=== PATIENT | male | born 1985 | race Caucasian/White ===

== ENCOUNTER 2018-05-26 19:30 | Emergency (ER) | payer OTHER ==
[2018-05-26] MEDS ORDERED: diphenhydrAMINE 50 MG/ML 1 ML VIAL IM STA (20:11)
[2018-05-26] MEDS ORDERED: LORazepam 2 MG/ML INJ IM STA ×2 (20:12→20:33)
[2018-05-26] MEDS ORDERED: ZIPRASIDONE 20 MG VIAL IM STA (20:20)
[2018-05-26 21:00] LABS: Basophils # (A) 0.1 k/uL (0-0.2); Basophils % (A) 1 %; Eosinophils # (A) 0.2 k/uL (0-0.7); Eosinophils % (A) 2 %; HCT 48.4 % (39.0-53.0); HGB 15.9 gm/dL (13.0-17.5); Lymphocytes # (A) 3.5 k/uL (1.0-4.8); Lymphocytes % (A) 39 %; MCH 30.2 pg (25.0-35.0); MCHC 32.9 g/dL (31.0-37.0); MCV 91.8 fL (80.0-100.0); Mean Platelet Volume 6.4; Monocytes # (A) 0.5 k/uL (0-1.0); Monocytes % (A) 6 %; Neutrophils # (A) 4.4 k/uL (1.3-7.7); Neutrophils % (A) 50 %; Platelet Count 230 k/uL (150-450); RBC 5.27 m/uL (4.30-5.90); WBC 8.9 k/uL (3.8-10.6)
[2018-05-26 21:13] LABS: ALT 33 U/L (21-72); AST 37 U/L (17-59); Alcohol <10 mg/dL; Alkaline Phosphatase 68 U/L (38-126); Anion Gap 19 mmol/L; Blood Urea Nitrogen 14 mg/dL (9-20); Carbon Dioxide 15 mmol/L (22-30); Chloride 106 mmol/L (98-107); Glucose 121 mg/dL (74-99); Potassium 4.1 mmol/L (3.5-5.1); Sodium 140 mmol/L (137-145); Total Bilirubin 0.7 mg/dL (0.2-1.3); Total Protein 8.2 g/dL (6.3-8.2)
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
[2018-05-27] MEDS ORDERED: ACETAMINOPHEN TAB 500 MG TAB PO STA (04:51)
[2018-05-27] MEDS ORDERED: IBUPROFEN 400 MG TAB PO STA (05:11)
[2018-05-27 05:24] LABS: Appearance,Urine Clear (Clear); Bilirubin,Urine Negative (Negative); Blood,Urine Negative (Negative); Color,Urine Yellow; Glucose,Urine (UA) Negative (Negative); Ketones,Urine Negative (Negative); Leukocyte Esterase,Urine Negative (Negative); Nitrite,Urine Negative (Negative); PH, Urine 5.5 (5.0-8.0); Protein,Urine Trace (Negative); Urobilinogen,Urine <2.0 mg/dL (<2.0)
[2018-05-27 05:34] LABS: Amphetamine Screen,Urine Not Detected (NotDetected); Barbiturate Screen,Urine Not Detected (NotDetected); Benzodiazepines Screen,Urine Detected (NotDetected); Cocaine Screen,Urine Not Detected (NotDetected); Methadone Screen, Urine Not Detected (NotDetected); Opiate Screen,Urine Not Detected (NotDetected); Oxycodone Screen, Urine Not Detected (NotDetected); Phencyclidine Screen,Urine Not Detected (NotDetected); Tricyclic Antidepressant,Urine Not Detected (NotDetected); Urn Cannabinoid Scrn Detected (NotDetected)
[2018-05-27] MEDS ORDERED: NICOTINE 21MG/24HR PATCH TRANSDERM STA (08:14)
[2018-05-27 10:14] VITALS: RESP 18
[2018-05-27 14:05] LABS: ALT 40 U/L (21-72); AST 43 U/L (17-59); Albumin 4.4 g/dL (3.5-5.0); Alkaline Phosphatase 58 U/L (38-126); Anion Gap 6 mmol/L; Blood Urea Nitrogen 14 mg/dL (9-20); Calcium 9.6 mg/dL (8.4-10.2); Carbon Dioxide 27 mmol/L (22-30); Chloride 108 mmol/L (98-107); Glucose 98 mg/dL (74-99); Potassium 4.2 mmol/L (3.5-5.1); Sodium 141 mmol/L (137-145); Total Protein 7.2 g/dL (6.3-8.2)
[2018-05-27 15:35] VITALS: BP 142/99; PULSE 88; TEMP 98.6
== END 2018-05-27 15:35 | disposition other institution (70) ==
LOC: EC 19:30
DX: F23 Brief psychotic disorder (principal); F22 Delusional disorders; F17.210 Nicotine dependence, cigarettes, uncomplicated; Z78.1 Physical restraint status; Z53.8 Procedure and treatment not carried out for other reasons
CPT/HCPCS: 36415 ×2; 80053 ×2; 85025; 81003; 80306; 99285; 96372 ×3; G0480; S4990; J2060; J3486; 80320

== ENCOUNTER 2018-06-09 13:25 | Emergency (ER) | payer OTHER ==
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
[2018-06-09] MEDS ORDERED: ZIPRASIDONE 20 MG VIAL IM STA (21:12)
[2018-06-09] MEDS ORDERED: LORazepam 2 MG/ML INJ IM STA (21:12)
[2018-06-09 21:17] VITALS: TEMP 98
[2018-06-10 03:33] LABS: Appearance,Urine Clear (Clear); Basophils # (A) 0.1 k/uL (0-0.2); Basophils % (A) 1 %; Bilirubin,Urine Negative (Negative); Blood,Urine Negative (Negative); Color,Urine Yellow; Eosinophils # (A) 0.4 k/uL (0-0.7); Eosinophils % (A) 4 %; Glucose,Urine (UA) Negative (Negative); HCT 44.7 % (39.0-53.0); HGB 15.3 gm/dL (13.0-17.5); Ketones,Urine Negative (Negative); Leukocyte Esterase,Urine Negative (Negative); Lymphocytes # (A) 3.1 k/uL (1.0-4.8); Lymphocytes % (A) 30 %; MCH 31.2 pg (25.0-35.0); MCHC 34.2 g/dL (31.0-37.0); MCV 91.3 fL (80.0-100.0); Mean Platelet Volume 6.4; Monocytes # (A) 0.7 k/uL (0-1.0); Monocytes % (A) 6 %; Neutrophils # (A) 6.2 k/uL (1.3-7.7); Neutrophils % (A) 58 %; Nitrite,Urine Negative (Negative); PH, Urine 5.5 (5.0-8.0); Platelet Count 211 k/uL (150-450); Protein,Urine Trace (Negative); RDW 12.9 % (11.5-15.5); Specific Gravity,Urine 1.023 (1.001-1.035); Urobilinogen,Urine <2.0 mg/dL (<2.0); WBC 10.6 k/uL (3.8-10.6)
[2018-06-10 03:48] LABS: ALT 51 U/L (21-72); AST 35 U/L (17-59); Alkaline Phosphatase 64 U/L (38-126); Anion Gap 7 mmol/L; Blood Urea Nitrogen 19 mg/dL (9-20); Calcium 9.7 mg/dL (8.4-10.2); Carbon Dioxide 26 mmol/L (22-30); Chloride 106 mmol/L (98-107); Glucose 105 mg/dL (74-99); Potassium 4.4 mmol/L (3.5-5.1); Sodium 139 mmol/L (137-145); Total Bilirubin 0.9 mg/dL (0.2-1.3)
[2018-06-10 06:06] LABS: Amphetamine Screen,Urine Not Detected (NotDetected); Barbiturate Screen,Urine Not Detected (NotDetected); Benzodiazepines Screen,Urine Detected (NotDetected); Cocaine Screen,Urine Not Detected (NotDetected); Methadone Screen, Urine Not Detected (NotDetected); Opiate Screen,Urine Not Detected (NotDetected); Oxycodone Screen, Urine Not Detected (NotDetected); Phencyclidine Screen,Urine Not Detected (NotDetected); Tricyclic Antidepressant,Urine Not Detected (NotDetected); Urn Cannabinoid Scrn Not Detected (NotDetected)
[2018-06-10 08:32] VITALS: BP 145/74; PULSE 89; RESP 16
[2018-06-10] MEDS ORDERED: DIVALPROEX ER 500 MG TAB.ER.24H PO STA (08:37)
[2018-06-10] MEDS ORDERED: NICOTINE 21MG/24HR PATCH TRANSDERM STA (11:01)
[2018-06-10] MEDS ORDERED: DIVALPROEX ER 500 MG TAB.ER.24H PO ONE (21:00)
== END 2018-06-10 11:18 ==
LOC: EC 13:25
DX: F31.9 Bipolar disorder, unspecified (principal); F17.200 Nicotine dependence, unspecified, uncomplicated; Z78.1 Physical restraint status; Z79.899 Other long term (current) drug therapy
CPT/HCPCS: 36415; 80053; 85025; 81003; 80306; 99285; 96372 ×2; S4990; J2060; J3486

== ENCOUNTER 2018-07-03 10:48 | Inpatient (IN) | payer MEDICAID, OTHER ==
[2018-07-03 11:32] LABS: Amphetamine Screen,Urine Not Detected (NotDetected); Barbiturate Screen,Urine Not Detected (NotDetected); Benzodiazepines Screen,Urine Not Detected (NotDetected); Cocaine Screen,Urine Not Detected (NotDetected); Methadone Screen, Urine Not Detected (NotDetected); Opiate Screen,Urine Not Detected (NotDetected); Oxycodone Screen, Urine Not Detected (NotDetected); Phencyclidine Screen,Urine Not Detected (NotDetected); Tricyclic Antidepressant,Urine Not Detected (NotDetected); Urn Cannabinoid Scrn Not Detected (NotDetected)
--- NOTE | 2018-07-03 11:53 | ED ---
General Adult HPI - General Source: patient, RN notes reviewed, old records reviewed Mode of arrival: ambulatory Limitations: no limitations <Rip Flores - Last Filed: 07/03/18 11:52> <Ata Manzo - Last Filed: 07/04/18 15:01> - General Chief complaint: Psychiatric Symptoms Stated complaint: petition Time Seen by Provider: 07/03/18 11:06 - History of Present Illness Initial comments: 33-year-old male presents for psychiatric evaluation. Patient was petitioned for aggressive behavior and anger issues. Patient denies any suicidal or homicidal ideation. He is called at the time my evaluation. He states he recently moved to [facility] where he has been receiving outpatient psychiatric care. He had a 18 bradycardia inpatient psychiatric stay and has been compliant with his medications since discharge. He has no physical complaints. (Rip Flores) - Related Data Home Medications Medication Instructions Recorded Confirmed Cyclobenzaprine [Flexeril] 10 mg PO Q8H PRN 05/27/18 07/03/18 Ibuprofen [Motrin] 800 mg PO Q8H PRN 05/27/18 07/03/18 Divalproex ER [Depakote ER] 1,000 mg PO HS 06/09/18 07/03/18 Brexpiprazole [Rexulti] 1 mg PO HS 07/03/18 07/03/18 Divalproex ER [Depakote ER] 500 mg PO DAILY 07/03/18 07/03/18 Allergies Allergy/AdvReac Type Severity Reaction Status Date / Time No Known Allergies Allergy Verified 07/03/18 11:12 Review of Systems ROS Other: All systems not noted in ROS Statement are negative. <Rip Flores - Last Filed: 07/03/18 11:52> ROS Other: All systems not noted in ROS Statement are negative. <Ata Manzo - Last Filed: 07/04/18 15:01> ROS Statement: Those systems with pertinent positive or pertinent negative responses have been documented in the HPI. Past Medical History Past Medical History: No Reported History History of Any Multi-Drug Resistant Organisms: None Reported Past Surgical History: No Surgical Hx Reported Past Psychological History: No Psychological Hx Reported Smoking Status: Current every day smoker Past Alcohol Use History: Occasional Past Drug Use History: None Reported <Rip Flores Thierno - Last Filed: 07/03/18 11:52> General Exam Limitations: no limitations General appearance: alert, in no apparent distress Head exam: Present: atraumatic, normocephalic Eye exam: Present: normal appearance, PERRL ENT exam: Present: normal exam Neck exam: Present: normal inspection Respiratory exam: Present: normal lung sounds bilaterally. Absent: respiratory distress, wheezes Cardiovascular Exam: Present: regular rate, normal rhythm GI/Abdominal exam: Present: soft. Absent: distended, tenderness Extremities exam: Present: normal inspection, normal capillary refill. Absent: pedal edema Neurological exam: Present: alert, oriented X3, CN II-XII intact. Absent: motor sensory deficit Psychiatric exam: Present: normal affect, normal mood. Absent: agitated, homicidal ideation, suicidal ideation <Rip Flores N - Last Filed: 07/03/18 11:52> Course Vital Signs 07/03/18 07/03/18 07/04/18 10:57 19:34 06:52 Temperature 98.0 F 97.9 F 97.9 F Pulse Rate 103 H 87 94 Respiratory 18 18 18 Rate Blood Pressure 133/74 133/74 132/77 O2 Sat by Pulse 97 98 98 Oximetry Medical Decision Making - Lab Data Result diagrams: 07/04/18 13:00 07/04/18 13:00 <Ata Manzo - Last Filed: 07/04/18 15:01> - Medical Decision Making EPS admitted the patient as an inpatient at this facility. (Ata Manzo) - Lab Data Lab Results 07/03/18 07/03/18 07/04/18 Range/Units 11:00 12:59 13:00 WBC 6.7 (3.8-10.6) k/uL RBC 5.35 (4.30-5.90) m/uL Hgb 15.6 (13.0-17.5) gm/dL Hct 48.6 (39.0-53.0) % MCV 90.9 (80.0-100.0) fL MCH 29.2 (25.0-35.0) pg MCHC 32.1 (31.0-37.0) g/dL RDW 12.9 (11.5-15.5) % Plt Count 296 (150-450) k/uL Neutrophils % 44 % Lymphocytes % 45 % Monocytes % 5 % Eosinophils % 2 % Basophils % 1 % Neutrophils # 3.0 (1.3-7.7) k/uL Lymphocytes # 3.0 (1.0-4.8) k/uL Monocytes # 0.4 (0-1.0) k/uL Eosinophils # 0.1 (0-0.7) k/uL Basophils # 0.1 (0-0.2) k/uL Sodium (137-145) mmol/L Potassium (3.5-5.1) mmol/L Chloride (98-107) mmol/L Carbon Dioxide (22-30) mmol/L Anion Gap mmol/L BUN (9-20) mg/dL Creatinine (0.66-1.25) mg/dL Est GFR (CKD-EPI)AfAm (>60 ml/min/1.73 sqM) Est GFR (CKD-EPI)NonAf (>60 ml/min/1.73 sqM) Glucose (74-99) mg/dL Calcium (8.4-10.2) mg/dL Total Bilirubin (0.2-1.3) mg/dL AST (17-59) U/L ALT (21-72) U/L Alkaline Phosphatase (38-126) U/L Total Protein (6.3-8.2) g/dL Albumin (3.5-5.0) g/dL Urine Color Urine Appearance (Clear) Urine pH (5.0-8.0) Ur Specific [place] (1.001-1.035) Urine Protein (Negative) Urine Glucose (UA) (Negative) Urine Ketones (Negative) Urine Blood (Negative) Urine Nitrite (Negative) Urine Bilirubin (Negative) Urine Urobilinogen (<2.0) mg/dL Ur Leukocyte Esterase (Negative) Urine Opiates Screen Not Detected (NotDetected) Ur Oxycodone Screen Not Detected (NotDetected) Urine Methadone Screen Not Detected (NotDetected) Ur Propoxyphene Screen Not Detected (NotDetected) Ur Barbiturates Screen Not Detected (NotDetected) Valproic Acid 63.7 ug/mL U Tricyclic Antidepress Not Detected (NotDetected) Ur Phencyclidine Scrn Not Detected (NotDetected) Ur Amphetamines Screen Not Detected (NotDetected) U Methamphetamines Scrn Not Detected (NotDetected) U Benzodiazepines Scrn Not Detected (NotDetected) Urine Cocaine Screen Not Detected (NotDetected) U Marijuana (THC) Screen Not Detected (NotDetected) 07/04/18 07/04/18 Range/Units 13:00 13:00 WBC (3.8-10.6) k/uL RBC (4.30-5.90) m/uL Hgb (13.0-17.5) gm/dL Hct (39.0-53.0) % MCV (80.0-100.0) fL MCH (25.0-35.0) pg MCHC (31.0-37.0) g/dL RDW (11.5-15.5) % Plt Count (150-450) k/uL Neutrophils % % Lymphocytes % % Monocytes % % Eosinophils % % Basophils % % Neutrophils # (1.3-7.7) k/uL Lymphocytes # (1.0-4.8) k/uL Monocytes # (0-1.0) k/uL Eosinophils # (0-0.7) k/uL Basophils # (0-0.2) k/uL Sodium 142 (137-145) mmol/L Potassium 4.5 (3.5-5.1) mmol/L Chloride 103 (98-107) mmol/L Carbon Dioxide 29 (22-30) mmol/L Anion Gap 10 mmol/L BUN 16 (9-20) mg/dL Creatinine 0.81 (0.66-1.25) mg/dL Est GFR (CKD-EPI)AfAm >90 (>60 ml/min/1.73 sqM) Est GFR (CKD-EPI)NonAf >90 (>60 ml/min/1.73 sqM) Glucose 102 H (74-99) mg/dL Calcium 10.2 (8.4-10.2) mg/dL Total Bilirubin 0.8 (0.2-1.3) mg/dL AST 29 (17-59) U/L ALT 62 (21-72) U/L Alkaline Phosphatase 61 (38-126) U/L Total Protein 7.6 (6.3-8.2) g/dL Albumin 4.3 (3.5-5.0) g/dL Urine Color Light Yellow Urine Appearance Clear (Clear) Urine pH 7.0 (5.0-8.0) Ur Specific [place] 1.005 (1.001-1.035) Urine Protein Negative (Negative) Urine Glucose (UA) Negative (Negative) Urine Ketones Negative (Negative) Urine Blood Negative (Negative) Urine Nitrite Negative (Negative) Urine Bilirubin Negative (Negative) Urine Urobilinogen <2.0 (<2.0) mg/dL Ur Leukocyte Esterase Negative (Negative) Urine Opiates Screen (NotDetected) Ur Oxycodone Screen (NotDetected) Urine Methadone Screen (NotDetected) Ur Propoxyphene Screen (NotDetected) Ur Barbiturates Screen (NotDetected) Valproic Acid ug/mL U Tricyclic Antidepress (NotDetected) Ur Phencyclidine Scrn (NotDetected) Ur Amphetamines Screen (NotDetected) U Methamphetamines Scrn (NotDetected) U Benzodiazepines Scrn (NotDetected) Urine Cocaine Screen (NotDetected) U Marijuana (THC) Screen (NotDetected) Disposition <Rip Flores - Last Filed: 07/03/18 11:52> Time of Disposition: 15:01 <Ata Manzo - Last Filed: 07/04/18 15:01> Clinical Impression: Depression, Bipolar disorder Disposition: ADMITTED IP TO THIS HOSP Referrals: Jolly Camara MD [Primary Care Provider] - 1-2 days
[2018-07-03] MEDS ORDERED: NICOTINE 21MG/24HR PATCH TRANSDERM STA (14:19)
[2018-07-03] MEDS ORDERED: IBUPROFEN 800 MG TAB PO PRN (16:50)
[2018-07-03] MEDS ORDERED: DIVALPROEX ER 500 MG TAB.ER.24H PO ONE (18:00)
[2018-07-03] MEDS ORDERED: REXULTI 1 MG PO SCH (18:00)
[2018-07-03] MEDS ORDERED: LORazepam 1 MG TAB PO STA (20:16)
[2018-07-03] MEDS ORDERED: BREXPIPRAZOLE 1 MG PO SCH (21:00)
[2018-07-04] MEDS: CYCLOBENZAPRINE 10 MG TAB PO PRN ×3 (05:35→13:26)
[2018-07-04] MEDS: IBUPROFEN 400 MG TAB PO PRN ×2 (05:37→13:25)
[2018-07-04] MEDS ORDERED: NICOTINE 21MG/24HR PATCH TRANSDERM STA (07:25)
[2018-07-04] MEDS: DIVALPROEX ER 500 MG TAB.ER.24H PO SCH ×2 (07:47→17:24)
--- NOTE | 2018-07-04 07:54 | CDI ---
Documentation Clarification OP Dear Rip CEJA MD Please provide clinical impression. Thank you, Shannan Sims Aviation Operations Specialist If you have any questions, please contact [facility] at [phone] [facility]
[2018-07-04] MEDS ORDERED: LORazepam 1 MG TAB PO STA (11:19)
[2018-07-04 13:19] LABS: Basophils # (A) 0.1 k/uL (0-0.2); Basophils % (A) 1 %; Eosinophils # (A) 0.1 k/uL (0-0.7); Eosinophils % (A) 2 %; HCT 48.6 % (39.0-53.0); HGB 15.6 gm/dL (13.0-17.5); Lymphocytes % (A) 45 %; MCH 29.2 pg (25.0-35.0); MCHC 32.1 g/dL (31.0-37.0); MCV 90.9 fL (80.0-100.0); Mean Platelet Volume 6.3; Monocytes # (A) 0.4 k/uL (0-1.0); Monocytes % (A) 5 %; Neutrophils % (A) 44 %; Platelet Count 296 k/uL (150-450); RBC 5.35 m/uL (4.30-5.90); RDW 12.9 % (11.5-15.5); WBC 6.7 k/uL (3.8-10.6)
[2018-07-04 13:21] LABS: ALT 62 U/L (21-72); AST 29 U/L (17-59); Albumin 4.3 g/dL (3.5-5.0); Alkaline Phosphatase 61 U/L (38-126); Anion Gap 10 mmol/L; Blood Urea Nitrogen 16 mg/dL (9-20); Calcium 10.2 mg/dL (8.4-10.2); Carbon Dioxide 29 mmol/L (22-30); Chloride 103 mmol/L (98-107); Glucose 102 mg/dL (74-99); Potassium 4.5 mmol/L (3.5-5.1); Sodium 142 mmol/L (137-145); Total Bilirubin 0.8 mg/dL (0.2-1.3); Total Protein 7.6 g/dL (6.3-8.2)
[2018-07-04 13:27] LABS: Appearance,Urine Clear (Clear); Bilirubin,Urine Negative (Negative); Blood,Urine Negative (Negative); Color,Urine Light Yellow; Glucose,Urine (UA) Negative (Negative); Ketones,Urine Negative (Negative); Leukocyte Esterase,Urine Negative (Negative); Nitrite,Urine Negative (Negative); Protein,Urine Negative (Negative); Specific Gravity,Urine 1.005 (1.001-1.035); Urobilinogen,Urine <2.0 mg/dL (<2.0)
[2018-07-04] MEDS ORDERED: MAGNESIUM HYDROXIDE 2,400 MG/10 ML CUP PO PRN (15:39)
[2018-07-04] MEDS ORDERED: ZIPRASIDONE 20 MG VIAL IM PRN (15:39)
[2018-07-04] MEDS ORDERED: MAG HYDROX/AL HYDROX/SIMETH 30 ML CUP PO PRN (15:39)
[2018-07-04] MEDS ORDERED: LORazepam 1 MG TAB PO PRN (15:39)
--- NOTE | 2018-07-04 17:14 | P.MDCNMH ---
History of Present Illness H&P Date: 07/04/18 Chief Complaint: Medical management 33-year-old male with PMH of bipolar disorder presents to the ED being brought in for police for aggressive behavior. [facility] has been consulted for medical management of this patient. Patient reports no past medical history. Patient does complain of chronic lower back pain. This pain started after he fell off stilts, onto his back. He was evaluated in the ED and cleared for any fracture. This happened back in April. Since then patient reports a 10 out of 10 chronic lower back pain, that is usually worsened first thing in the morning. The pain gets better throughout the day and with movement. Pain occasionally radiates to the bilateral lower extremities towards the knees. There are no alleviating or aggravating factors. Patient takes a combination of Flexeril, ibuprofen and Tylenol which helps his back pain. He denies any bladder or bowel incontinence, saddle anesthesia. Otherwise, patient denies any headaches, lower extremity edema, nausea, vomiting, fever, cough, chest pain, shortness of breath, palpitations, changes in urination or bowel habits. No changes in appetite or weight. Of note, patient reports smoking 2 packs of cigarettes daily for the past 4 years. He does complain of insomnia, which is helped with Ativan. Review of Systems All systems: negative Past Medical History Past Medical History: No Reported History History of Any Multi-Drug Resistant Organisms: None Reported Past Surgical History: No Surgical Hx Reported Past Psychological History: No Psychological Hx Reported Smoking Status: Current every day smoker Past Alcohol Use History: Occasional Past Drug Use History: None Reported Medications and Allergies Home Medications Medication Instructions Recorded Confirmed Type Cyclobenzaprine [Flexeril] 10 mg PO Q8H PRN 05/27/18 07/03/18 History Ibuprofen [Motrin] 800 mg PO Q8H PRN 05/27/18 07/03/18 History Divalproex ER [Depakote ER] 1,000 mg PO HS 06/09/18 07/03/18 History Brexpiprazole [Rexulti] 1 mg PO HS 07/03/18 07/03/18 History Divalproex ER [Depakote ER] 500 mg PO DAILY 07/03/18 07/03/18 History Allergies Allergy/AdvReac Type Severity Reaction Status Date / Time No Known Allergies Allergy Verified 07/03/18 11:12 Physical Exam Vitals: Vital Signs Temp Pulse Pulse Resp BP BP Pulse Ox 07/04/18 15:52 97.3 F L 89 16 133/84 98 07/04/18 06:52 97.9 F 94 18 132/77 98 07/03/18 19:34 97.9 F 87 18 133/74 98 General: [non toxic], [no distress], [appears at stated age] Derm: [warm], [dry] Head: [atraumatic], [normocephalic], [symmetric] Eyes: [EOMI], [no lid lag], [anicteric sclera] Mouth: [no lip lesion], [mucus membranes moist] Cardiovascular: [S1S2 reg], [no murmur], [positive posterior tibial pulse bilateral], Lungs: [CTA bilateral], [no rhonchi, no rales] , [no accessory muscle use] Abdominal: [soft], [ nontender to palpation], [no guarding], [no appreciable organomegaly] Ext: [no gross muscle atrophy], [no edema], [tenderness over the paraspinal muscles bilaterally, SLR negative] Neuro: [ CN II-XI grossly intact], [no focal neuro deficits] Psych: [Alert], [oriented], [appropriate affect] Cranial Nerve Examination - Cranial Nerves Cranial Nerve II- Optic: Intact Cranial Nerve III- Oculomotor: Intact Cranial Nerve IV- Trochlear: Intact Cranial Nerve V- Trigeminal: Intact Cranial Nerve - Abducens: Intact Cranial Nerve VII- Facial: Intact Cranial Nerve VIII- Auditory: Intact Cranial Nerve IX- Glossopharyngeal: Intact Cranial Nerve X- Vagus: Intact Cranial Nerve XI- Accessory: Intact Cranial Nerve XII- Hypoglossal: Intact Results CBC & Chem 7: 07/04/18 13:00 07/04/18 13:00 Labs: Abnormal Lab Results - Last 24 Hours (Table) 07/04/18 Range/Units 13:00 Glucose 102 H (74-99) mg/dL Assessment and Plan Assessment: Assessment and Plan 1. Chronic lower back pain 2. Insomnia 3. Smoker 1. Chronic lower back pain secondary to injury suffered in April. He does not have any warning symptoms of back pain. Pain management with Tylenol, ibuprofen. Will add Flexeril as needed. Follow-up PCP for further management and treatment. 2. Start Ativan 2 mg by mouth at bedtime. Patient has reported that this is worked well in the past. 3. Nicotine patch. Thank you for this consult. Please call with additional questions.
[2018-07-04] MEDS: LORazepam 1 MG TAB PO PRN (20:56)
[2018-07-04] MEDS ORDERED: PALIPERIDONE 3 MG TAB.ER.24 PO SCH (21:00)
[2018-07-05] MEDS: DIVALPROEX ER 500 MG TAB.ER.24H PO SCH ×2 (08:00→17:39)
[2018-07-05] MEDS: NICOTINE 21MG/24HR PATCH TRANSDERM SCH (08:00)
[2018-07-05] MEDS: IBUPROFEN 400 MG TAB PO PRN ×2 (08:01→21:06)
--- NOTE | 2018-07-05 11:25 | P.HP ---
Psychiatric H&P - . H&P Date: 07/05/18 History & Physical: Allergies Allergy/AdvReac Type Severity Reaction Status Date / Time No Known Allergies Allergy Verified 07/03/18 11:12 Vital Signs Temp 97.9 F 07/04/18 06:52 Pulse 94 07/04/18 06:52 Resp 18 07/04/18 06:52 BP 132/77 07/04/18 06:52 Pulse Ox 98 07/04/18 06:52 Intake & Output 07/03/18 07/04/18 07/04/18 18:59 06:59 18:59 Weight 108.862 kg Laboratory Last Values WBC 6.7 k/uL (3.8-10.6) 07/04/18 13:00 RBC 5.35 m/uL (4.30-5.90) 07/04/18 13:00 Hgb 15.6 gm/dL (13.0-17.5) 07/04/18 13:00 Hct 48.6 % (39.0-53.0) 07/04/18 13:00 MCV 90.9 fL (80.0-100.0) 07/04/18 13:00 MCH 29.2 pg (25.0-35.0) 07/04/18 13:00 MCHC 32.1 g/dL (31.0-37.0) 07/04/18 13:00 RDW 12.9 % (11.5-15.5) 07/04/18 13:00 Plt Count 296 k/uL (150-450) 07/04/18 13:00 Neutrophils % 44 % 07/04/18 13:00 Lymphocytes % 45 % 07/04/18 13:00 Monocytes % 5 % 07/04/18 13:00 Eosinophils % 2 % 07/04/18 13:00 Basophils % 1 % 07/04/18 13:00 Neutrophils # 3.0 k/uL (1.3-7.7) 07/04/18 13:00 Lymphocytes # 3.0 k/uL (1.0-4.8) 07/04/18 13:00 Monocytes # 0.4 k/uL (0-1.0) 07/04/18 13:00 Eosinophils # 0.1 k/uL (0-0.7) 07/04/18 13:00 Basophils # 0.1 k/uL (0-0.2) 07/04/18 13:00 Sodium 142 mmol/L (137-145) 07/04/18 13:00 Potassium 4.5 mmol/L (3.5-5.1) 07/04/18 13:00 Chloride 103 mmol/L (98-107) 07/04/18 13:00 Carbon Dioxide 29 mmol/L (22-30) 07/04/18 13:00 Anion Gap 10 mmol/L 07/04/18 13:00 BUN 16 mg/dL (9-20) 07/04/18 13:00 Creatinine 0.81 mg/dL (0.66-1.25) 07/04/18 13:00 Est GFR (CKD-EPI)AfAm >90 (>60 ml/min/1.73 sqM) 07/04/18 13:00 Est GFR (CKD-EPI)NonAf >90 (>60 ml/min/1.73 sqM) 07/04/18 13:00 Glucose 102 mg/dL (74-99) H 07/04/18 13:00 Calcium 10.2 mg/dL (8.4-10.2) 07/04/18 13:00 Total Bilirubin 0.8 mg/dL (0.2-1.3) 07/04/18 13:00 AST 29 U/L (17-59) 07/04/18 13:00 ALT 62 U/L (21-72) 07/04/18 13:00 Alkaline Phosphatase 61 U/L (38-126) 07/04/18 13:00 Total Protein 7.6 g/dL (6.3-8.2) 07/04/18 13:00 Albumin 4.3 g/dL (3.5-5.0) 07/04/18 13:00 Urine Color Light Yellow 07/04/18 13:00 Urine Appearance Clear (Clear) 07/04/18 13:00 Urine pH 7.0 (5.0-8.0) 07/04/18 13:00 Ur Specific [place] 1.005 (1.001-1.035) 07/04/18 13:00 Urine Protein Negative (Negative) 07/04/18 13:00 Urine Glucose (UA) Negative (Negative) 07/04/18 13:00 Urine Ketones Negative (Negative) 07/04/18 13:00 Urine Blood Negative (Negative) 07/04/18 13:00 Urine Nitrite Negative (Negative) 07/04/18 13:00 Urine Bilirubin Negative (Negative) 07/04/18 13:00 Urine Urobilinogen <2.0 mg/dL (<2.0) 07/04/18 13:00 Ur Leukocyte Esterase Negative (Negative) 07/04/18 13:00 Urine Opiates Screen Not Detected (NotDetected) 07/03/18 11:00 Ur Oxycodone Screen Not Detected (NotDetected) 07/03/18 11:00 Urine Methadone Screen Not Detected (NotDetected) 07/03/18 11:00 Ur Propoxyphene Screen Not Detected (NotDetected) 07/03/18 11:00 Ur Barbiturates Screen Not Detected (NotDetected) 07/03/18 11:00 Valproic Acid 63.7 ug/mL 07/03/18 12:59 U Tricyclic Antidepress Not Detected (NotDetected) 07/03/18 11:00 Ur Phencyclidine Scrn Not Detected (NotDetected) 07/03/18 11:00 Ur Amphetamines Screen Not Detected (NotDetected) 07/03/18 11:00 U Methamphetamines Scrn Not Detected (NotDetected) 07/03/18 11:00 U Benzodiazepines Scrn Not Detected (NotDetected) 07/03/18 11:00 Urine Cocaine Screen Not Detected (NotDetected) 07/03/18 11:00 U Marijuana (THC) Screen Not Detected (NotDetected) 07/03/18 11:00 Assessment and Plan Assessment: This is a 33-year-old male presents for psychiatric evaluation. Patient was petitioned for aggressive behavior and anger issues. Patient denies any suicidal or homicidal ideation. He is calm at the time my evaluation. He states he recently moved to [facility] where he has been receiving outpatient psychiatric care. He had a inpatient psychiatric stay and has been compliant with his medications since discharge. He has no physical complaints. This is his fifth hospitalization for psychiatric purposes. His last hospitalization was at [facility] in [facility] and was cared for by Dr. Trinidad. 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 - Related Data Home Medications Medication Instructions Recorded Confirmed Cyclobenzaprine [Flexeril] 10 mg PO Q8H PRN 05/27/18 07/03/18 Ibuprofen [Motrin] 800 mg PO Q8H PRN 05/27/18 07/03/18 Divalproex ER [Depakote ER] 1,000 mg PO HS 06/09/18 07/03/18 Brexpiprazole [Rexulti] 1 mg PO HS 07/03/18 07/03/18 Divalproex ER [Depakote ER] 500 mg PO DAILY 07/03/18 07/03/18 Allergies Allergy/AdvReac Type Severity Reaction Status Date / Time No Known Allergies Allergy Verified 07/03/18 11:12 Past Medical History Past Medical History: No Reported History History of Any Multi-Drug Resistant Organisms: None Reported Past Surgical History: No Surgical Hx Reported Past Psychological History: No Psychological Hx Reported Smoking Status: Current every day smoker Past Alcohol Use History: Occasional Past Drug Use History: None Reported Musculoskeletal Examination - Abnormal/Involuntary Movements: [none Strength: [greater than antigravity (greater than/equal to 3/5) in all extremities Muscle Tone: [no impairment Gait: [grossly normal Station: [grossly normal Mental Status Examination - General Appearance: [well groomed, casual, appears stated age Speech/Language: [spontaneousexpressive, loud Attitude/Behavior: [cooperative Mood: [ euphoric, anxious Affect: [full range Orientation: [time, person, place situation] Thought Content: [wnl, delusions, obsessions, phobias, other] Risk Factors: [Denies suicidal (ideations, plan), and/or Homicidal (ideations, plan), other] Perception: [wnl, denies hallucinations (auditory, visual, tactile), other] Thought Processes: [He is goal-oriented Concentration/Attention Span: [wnl] [Per observation and interview with the patient] Recent Memory: [wnl Remote Memory: [wnl] [past events, as related history] Intelligence: [ average] [based on history, based on vocabulary, syntax, grammar, and content] Judgement: [good] [per patient's behavior/history of present illness] Insight: [good] [understanding severity of illness/history of present illness] Admitting Diagnosis: [Bipolar affective disorder noncompliant with treatment] Patient Strengths - P Able to vocalize needs: [x] Values and traditions: [] Motivation, determination, readiness for change: [x] Setting and pursuing goals, hopes, dreams, aspirations: [x] Patient Limitations: [medication, non-compliance, Initial Plan of Care: [Is admitted on an involuntary basis due to demand hearing since he deferred at last inpatient psychiatric facility to adhere to a psychiatric medical treatment program and he has not done. He will have a demand hearing with probate court regarding his nonadherence to medical treatment program. He'll be placed on 15 minute checks criminal usual forman and milieu therapy. He will be evaluated by medicine, psychiatry, nursing staff, social work and occupational therapy. He'll be expected to remain in compliance and adherence to his medications and a thorough biopsychosocial evaluation be completed. He'll be continued on his Depakote but will discontinue his antidepressant and will add an antipsychotic for mood and thought stabilization.] Estimated Length of Stay: [5 days] Initial Discharge Plan: [[place] Prognosis: [ fair] Justification for Inpatient Hospitalization - [Legally mandated admission.] [ [Failure of treatment at a lower level of care.] Other: [Demand hearing due to not following up on his outpatient treatment.] (1) Bipolar disorder Current Visit: Yes Status: Acute Code(s): F31.9 - BIPOLAR DISORDER, UNSPECIFIED SNOMED Code(s): 66732691 Time with Patient: Greater than 30
[2018-07-05] MEDS: CYCLOBENZAPRINE 5 MG TAB PO PRN ×2 (13:22→21:29)
[2018-07-05] MEDS ORDERED: PALIPERIDONE 6 MG TAB.ER.24 PO SCH (21:00)
[2018-07-05] MEDS: LORazepam 1 MG TAB PO PRN (21:07)
[2018-07-06] MEDS: IBUPROFEN 400 MG TAB PO PRN ×3 (04:51→21:26)
[2018-07-06] MEDS: CYCLOBENZAPRINE 5 MG TAB PO PRN ×3 (04:51→21:25)
[2018-07-06] MEDS: NICOTINE 21MG/24HR PATCH TRANSDERM SCH (08:18)
[2018-07-06] MEDS: DIVALPROEX ER 500 MG TAB.ER.24H PO SCH ×2 (08:18→17:13)
--- NOTE | 2018-07-06 12:25 | P.PN ---
Subjective Progress Note Date: 07/06/18 Principal diagnosis: bipolar affective disorder-manic He more alert and able to communicate with less pressured speech. Objective - Vital Signs Vital signs: Vital Signs Temp 98 F 07/06/18 06:50 Pulse 102 H 07/06/18 06:50 Resp 18 07/06/18 06:50 BP 145/74 07/06/18 06:50 Pulse Ox 98 07/04/18 15:52 Intake & Output 07/05/18 07/06/18 07/06/18 18:59 06:59 18:59 Weight 109.781 kg - Labs CBC & Chem 7: 07/04/18 13:00 07/04/18 13:00 Assessment and Plan Assessment: This is a 33-year-old male presents for psychiatric evaluation. Patient was petitioned for aggressive behavior and anger issues. Patient denies any suicidal or homicidal ideation. He is calm at the time my evaluation. He s tates he recently moved to [facility] where he has been receiving outpatient psychiatric care. He had a inpatient psychiatric stay and has been compliant with his medications since discharge. He has no physical complaints. This is his fifth hospitalization for psychiatric purposes. His last hospitalization was at [facility] in [facility] and was cared for by Dr. Trinidad. 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 - Related Data Home Medications Medication Instructions Recorded Confirmed Cyclobenzaprine [Flexeril] 10 mg PO Q8H PRN 05/27/18 07/03/18 Ibuprofen [Motrin] 800 mg PO Q8H PRN 05/27/18 07/03/18 Divalproex ER [Depakote ER] 1,000 mg PO HS 06/09/18 07/03/18 Brexpiprazole [Rexulti] 1 mg PO HS 07/03/18 07/03/18 Divalproex ER [Depakote ER] 500 mg PO DAILY 07/03/18 07/03/18 Allergies Allergy/AdvReac Type Severity Reaction Status Date / Time No Known Allergies Allergy Verified 07/03/18 11:12 Past Medical History Past Medical History: No Reported History History of Any Multi-Drug Resistant Organisms: None Reported Past Surgical History: No Surgical Hx Reported Past Psychological History: No Psychological Hx Reported Smoking Status: Current every day smoker Past Alcohol Use History: Occasional Past Drug Use History: None Reported Musculoskeletal Examination - Abnormal/Involuntary Movements: [none Strength: [greater than antigravity (greater than/equal to 3/5) in all extremities Muscle Tone: [no impairment Gait: [grossly normal Station: [grossly normal Mental Status Examination - General Appearance: [well groomed, casual, appears stated age Speech/Language: [spontaneousexpressive, loud Attitude/Behavior: [cooperative Mood: [ euphoric, anxious Affect: [full range Orientation: [time, person, place situation] Thought Content: [wnl, delusions, obsessions, phobias, other] Risk Factors: [Denies suicidal (ideations, plan), and/or Homicidal (ideations, plan), other] Perception: [wnl, denies hallucinations (auditory, visual, tactile), other] Thought Processes: [He is goal-oriented Concentration/Attention Span: [wnl] [Per observation and interview with the patient] Recent Memory: [wnl Remote Memory: [wnl] [past events, as related history] Intelligence: [ average] [based on history, based on vocabulary, syntax, grammar, and content] Judgement: [good] [per patient's behavior/history of present illness] Insight: [good] [understanding severity of illness/history of present illness] Admitting Diagnosis: [Bipolar affective disorder noncompliant with treatment] Patient Strengths - P Able to vocalize needs: [x] Values and traditions: [] Motivation, determination, readiness for change: [x] Setting and pursuing goals, hopes, dreams, aspirations: [x] Patient Limitations: [medication, non-compliance, Initial Plan of Care: [Is admitted on an involuntary basis due to demand hearing since he deferred at last inpatient psychiatric facility to adhere to a psychiatric medical treatment program and he has not done. He will have a demand hearing with probate court regarding his nonadherence to medical treatment program. He'll be placed on 15 minute checks criminal usual forman and milieu therapy. He will be evaluated by medicine, psychiatry, nursing staff, social work and occupational therapy. He'll be expected to remain in compliance and adherence to his medications and a thorough biopsychosocial evaluation be completed. He'll be continued on his Depakote but will discontinue his antidepressant and will add an antipsychotic for mood and thought stabilization.] Estimated Length of Stay: [4 days] Initial Discharge Plan: [[place], [facility] Prognosis: [ fair] Justification for Inpatient Hospitalization - [Legally mandated admission.] [ [Failure of treatment at a lower level of care.] Other: [Demand hearing due to not following up on his outpatient treatment.] (1) Bipolar disorder Current Visit: Yes Status: Acute Priority: Medium Code(s): F31.9 - BIPOLAR DISORDER, UNSPECIFIED SNOMED Code(s): 97578638 Plan: increase invega 9 mg po qhs; continue Depakote; continue 15 minutes checks. Time with Patient: Less than 30
[2018-07-06] MEDS ORDERED: PALIPERIDONE 3 MG TAB.ER.24 PO SCH (21:00)
[2018-07-06] MEDS: LORazepam 1 MG TAB PO PRN (21:25)
[2018-07-07] MEDS: CYCLOBENZAPRINE 5 MG TAB PO PRN ×3 (01:53→21:18)
[2018-07-07] MEDS: ACETAMINOPHEN TAB 325 MG TAB PO PRN ×2 (01:53→11:35)
[2018-07-07 07:22] VITALS: TEMP 97.5
[2018-07-07] MEDS: DIVALPROEX ER 500 MG TAB.ER.24H PO SCH ×2 (07:52→16:58)
[2018-07-07] MEDS: NICOTINE 21MG/24HR PATCH TRANSDERM SCH (07:52)
[2018-07-07] MEDS: IBUPROFEN 400 MG TAB PO PRN ×2 (07:52→21:19)
[2018-07-07] MEDS ORDERED: PALIPERIDONE IM 234 MG/1.5 ML SYG IM STA (12:08)
--- NOTE | 2018-07-07 12:12 | P.PN ---
Subjective Progress Note Date: 07/07/18 Principal diagnosis: bipolar affective disorder-manic He more alert and able to communicate with less pressured speech. 07/07/2018: Encouraged will how he feels less depressed and less anxious but I still has pressured speech Objective - Vital Signs Vital signs: Vital Signs Temp 97.5 F L 07/07/18 06:21 Pulse 82 07/07/18 06:21 Resp 16 07/07/18 06:21 BP 122/73 07/07/18 06:21 Pulse Ox 98 07/04/18 15:52 Intake & Output 07/06/18 07/07/18 07/07/18 18:59 06:59 18:59 Weight 109.781 kg - Labs CBC & Chem 7: 07/04/18 13:00 07/04/18 13:00 Assessment and Plan Assessment: This is a 33-year-old male presents for psychiatric evaluation. Patient was petitioned for aggressive behavior and anger issues. Patient denies any suicidal or homicidal ideation. He is calm at the time my evaluation. He states he recently moved to [facility] where he has been receiving outpatient psychiatric care. He had a inpatient psychiatric stay and has been compliant with his medications since discharge. He has no physical complaints. This is his fifth hospitalization for psychiatric purposes. His last hospitalization was at [facility] in [facility] and was cared for by Dr. Trinidad. 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 - Related Data Home Medications Medication Instructions Recorded Confirmed Cyclobenzaprine [Flexeril] 10 mg PO Q8H PRN 05/27/18 07/03/18 Ibuprofen [Motrin] 800 mg PO Q8H PRN 05/27/18 07/03/18 Divalproex ER [Depakote ER] 1,000 mg PO HS 06/09/18 07/03/18 Brexpiprazole [Rexulti] 1 mg PO HS 07/03/18 07/03/18 Divalproex ER [Depakote ER] 500 mg PO DAILY 07/03/18 07/03/18 Allergies Allergy/AdvReac Type Severity Reaction Status Date / Time No Known Allergies Allergy Verified 07/03/18 11:12 Past Medical History Past Medical History: No Reported History History of Any Multi-Drug Resistant Organisms: None Reported Past Surgical History: No Surgical Hx Reported Past Psychological History: No Psychological Hx Reported Smoking Status: Current every day smoker Past Alcohol Use History: Occasional Past Drug Use History: None Reported Musculoskeletal Examination - Abnormal/Involuntary Movements: [none Strength: [greater than antigravity (greater than/equal to 3/5) in all extremities Muscle Tone: [no impairment Gait: [grossly normal Station: [grossly normal Mental Status Examination - General Appearance: [well groomed, casual, appears stated age Speech/Language: [spontaneousexpressive, loud Attitude/Behavior: [cooperative Mood: [ euphoric, anxious Affect: [full range Orientation: [time, person, place situation] Thought Content: [wnl, delusions, obsessions, phobias, other] Risk Factors: [Denies suicidal (ideations, plan), and/or Homicidal (ideations, plan), other] Perception: [wnl, denies hallucinations (auditory, visual, tactile), other] Thought Processes: [He is goal-oriented Concentration/Attention Span: [wnl] [Per observation and interview with the patient] Recent Memory: [wnl Remote Memory: [wnl] [past events, as related history] Intelligence: [ average] [based on history, based on vocabulary, syntax, grammar, and content] Judgement: [good] [per patient's behavior/history of present illness] Insight: [good] [understanding severity of illness/history of present illness] Admitting Diagnosis: [Bipolar affective disorder noncompliant with treatment] Patient Strengths - P Able to vocalize needs: [x] Values and traditions: [] Motivation, determination, readiness for change: [x] Setting and pursuing goals, hopes, dreams, aspirations: [x] Patient Limitations: [medication, non-compliance, Initial Plan of Care: [Is admitted on an involuntary basis due to demand hearing since he deferred at last inpatient psychiatric facility to adhere to a psychiatric medical treatment program and he has not done. He will have a demand hearing with probate court regarding his nonadherence to medical treatment program. He'll be placed on 15 minute checks criminal usual forman and milieu therapy. He will be evaluated by medicine, psychiatry, nursing staff, social work and occupational therapy. He'll be expected to remain in compliance and adherence to his medications and a thorough biopsychosocial evaluation be completed. He'll be continued on his Depakote but will discontinue his antidepressant and will add an antipsychotic for mood and thought stabilization.] Estimated Length of Stay: [4 days] Initial Discharge Plan: [[place], [facility] Prognosis: [ fair] Justification for Inpatient Hospitalization - [Legally mandated admission.] [ [Failure of treatment at a lower level of care.] Other: [Demand hearing due to not following up on his outpatient treatment.] (1) Bipolar disorder Current Visit: Yes Status: Acute Priority: Medium Code(s): F31.9 - BIPOLAR DISORDER, UNSPECIFIED SNOMED Code(s): 80045114 Plan: increase invega 9 mg po qhs; continue Depakote; continue 15 minutes checks. 07/07/2018: Discussed in detail with the patient the use of injectable Invega and he is agreeable to the 234 mg injection today. We'll continue him on his Depakote twice a day and continue his 15 minute checks. Time with Patient: Less than 30
[2018-07-07] MEDS: NICOTINE POLACRILEX 2 MG GUM BUCCAL PRN ×2 (14:24→19:15)
[2018-07-07] MEDS: SODIUM CHLORIDE 0.65% NASAL SPRAY 44 ML BTL NASAL PRN (19:14)
[2018-07-07] MEDS: LORazepam 1 MG TAB PO PRN (21:18)
[2018-07-08] MEDS: SODIUM CHLORIDE 0.65% NASAL SPRAY 44 ML BTL NASAL PRN (05:59)
[2018-07-08] MEDS: NICOTINE POLACRILEX 2 MG GUM BUCCAL PRN ×2 (06:00→08:05)
[2018-07-08] MEDS: IBUPROFEN 400 MG TAB PO PRN (06:00)
[2018-07-08 06:07] VITALS: BP 130/85; PULSE 97; RESP 18
[2018-07-08] MEDS: CYCLOBENZAPRINE 5 MG TAB PO PRN (06:33)
[2018-07-08] MEDS: DIVALPROEX ER 500 MG TAB.ER.24H PO SCH (08:05)
[2018-07-08] MEDS ORDERED: PALIPERIDONE IM 234 MG/1.5 ML SYG IM STA (12:04)
--- NOTE | 2018-07-08 12:13 | P.DS ---
Providers Date of admission: 07/04/18 15:19 Expected date of discharge: 07/08/18 Attending physician: Ghassan La DO Consults: 07/04/18 15:39 Consult Physician Routine Consulting Provider: Kuldeep Bah Consult Reason/Comments: H&P, with medical followup Do you want consulting provider notified?: Yes Primary care physician: Jolly Camara - Discharge Diagnosis(es) (1) Bipolar disorder This is a 33-year-old male presents for psychiatric evaluation. Patient was petitioned for aggressive behavior and anger issues. Patient denies any suicidal or homicidal ideation. He is calm at the time my evaluation. He states he recently moved to [facility] where he has been receiving outpatient psychiatric care. He had a inpatient psychiatric stay and has been compliant with his medications since discharge. He has no physical complaints. This is his fifth hospitalization for psychiatric purposes. His last hospitalization was at [facility] in [facility] and was cared for by Dr. Trinidad. He had moved to [place] and had a job working on building a porch when he came home to [place] to visit his father and in the morning the police came to his to the hospital for psychiatric evaluation. - Related Data Home Medications Medication Instructions Recorded Confirmed Cyclobenzaprine [Flexeril] 10 mg PO Q8H PRN 05/27/18 07/03/18 Ibuprofen [Motrin] 800 mg PO Q8H PRN 05/27/18 07/03/18 Divalproex ER [Depakote ER] 1,000 mg PO HS 06/09/18 07/03/18 Brexpiprazole [Rexulti] 1 mg PO HS 07/03/18 07/03/18 Divalproex ER [Depakote ER] 500 mg PO DAILY 07/03/18 07/03/18 Allergies Allergy/AdvReac Type Severity Reaction Status Date / Time No Known Allergies Allergy Verified 07/03/18 11:12 Past Medical History Past Medical History: No Reported History History of Any Multi-Drug Resistant Organisms: None Reported Past Surgical History: No Surgical Hx Reported Past Psychological History: No Psychological Hx Reported Smoking Status: Current every day smoker Past Alcohol Use History: Occasional Past Drug Use History: None Reported Current Visit: Yes Status: Acute Priority: Low Hospital Course: Plan of Care: [Is admitted on an involuntary basis due to demand hearing since he deferred at last inpatient psychiatric facility to adhere to a psychiatric medical treatment program and he has not done. He will have a demand hearing with probate court regarding his nonadherence to medical treatment program. He'll be placed on 15 minute checks criminal usual forman and milieu therapy. He will be evaluated by medicine, psychiatry, nursing staff, social work and occ upational therapy. He'll be expected to remain in compliance and adherence to his medications and a thorough biopsychosocial evaluation be completed. He'll be continued on his Depakote but will discontinue his antidepressant and will add an antipsychotic for mood and thought stabilization. increase invega 9 mg po qhs; continue Depakote; continue 15 minutes checks. 07/07/2018: Discussed in detail with the patient the use of injectable Invega and he is agreeable to the 234 mg injection today. We'll continue him on his Depakote twice a day and continue his 15 minute checks.] Mental status at time discharge: The patient presents alert, pleasant, and cooperative. There calmly seated without any agitated behavior. [He] reports that [his] mood is good. Affect is congruent and euthymic. [He] deny having any suicidal or homicidal ideation intent or plan. [He] denies any auditory or visual hallucinations. There is no evidence of any delusional thought content. [His thought process is linear and goal-directed. [His] speech is fluent and nonpressured. [His] memory and concentration is grossly intact for the purposes of this session. His next injection should be 08/05/2018 of Invega injectable. He will continue on his Depakote as ordered before he has been taken off of his antidepressant since it was not evidence-based to use this for a bipolar. Patient Condition at Discharge: Stable Plan - Discharge Summary Discharge Rx Participant: Yes New Discharge Prescriptions: New Paliperidone IM [Invega Sustenna] 234 mg IM ONCE 28 Days #1 syringe Nicotine Polacrilex [Nicorette] 2 mg BUCCAL Q2HR PRN 30 Days #120 gum PRN Reason: Nicotine Cravings Continue Divalproex ER [Depakote ER] 1,000 mg PO HS Divalproex ER [Depakote ER] 500 mg PO DAILY Cyclobenzaprine [Flexeril] 10 mg PO Q8H PRN 30 Days #90 tab PRN Reason: Muscle Spasm Discontinued Ibuprofen [Motrin] 800 mg PO Q8H PRN PRN Reason: Pain Brexpiprazole [Rexulti] 1 mg PO HS Discharge Medication List Divalproex ER [Depakote ER] 1,000 mg PO HS 06/09/18 [History] Divalproex ER [Depakote ER] 500 mg PO DAILY 07/03/18 [History] Cyclobenzaprine [Flexeril] 10 mg PO Q8H PRN 30 Days #90 tab 07/08/18 [Rx] Nicotine Polacrilex [Nicorette] 2 mg BUCCAL Q2HR PRN 30 Days #120 gum 07/08/18 [Rx] Paliperidone IM [Invega Sustenna] 234 mg IM ONCE 28 Days #1 syringe 07/08/18 [Rx] Follow up Appointment(s)/Referral(s): Jolly Camara MD [Primary Care Provider] - 1-2 days Discharge Disposition: HOME SELF-CARE
== END 2018-07-08 13:14 | disposition home or self-care (01) | DRG 885 ==
LOC: EC 10:48 → 3MHU 07-04 15:19
PROVIDERS: ADMIT Psychiatry & Neurology Psychiatry; ATTEND Psychiatry & Neurology Psychiatry
DX: F31.10 Bipolar disorder, current episode manic without psychotic features, unspecified (principal); G89.29 Other chronic pain; M54.5 Low back pain; G47.00 Insomnia, unspecified; F17.210 Nicotine dependence, cigarettes, uncomplicated; Z71.6 Tobacco abuse counseling; Z91.19 Patient's noncompliance with other medical treatment and regimen; Z79.899 Other long term (current) drug therapy
CPT/HCPCS: 36415; 80053; 80164; 80306; 81003; 82075; 85025; 99285

== ENCOUNTER 2020-01-20 04:25 | Emergency (ER) | payer OTHER ==
[2020-01-20 04:31] VITALS: BP 132/88; PULSE 90; RESP 18; TEMP 98
[2020-01-20] MEDS ORDERED: SODIUM CHLORIDE 0.9% 2,000 ML IV STA (04:45)
--- NOTE | 2020-01-20 04:49 | ED ---
General Adult HPI - General Chief complaint: Chest Pain Stated complaint: Flank pain Time Seen by Provider: 01/20/20 04:29 Source: patient Mode of arrival: ambulatory Limitations: no limitations - History of Present Illness Initial comments: Rip is a 34-year-old male with extensive psychiatric history who presents to ER today via ambulance for evaluation of multiple complaints. Apparently yesterday during the day the patient reported he was having some bilateral kidney pain she believed was due to dehydration, he went to [facility] where he refused to have his blood drawn and was subsequent discharged home. He reports that since 2 PM yesterday he began walking he reports he walked from [facility] where the ambulance found him laying on the sidewalk in [place]. Patient reported that he had pain in his bilateral legs from walking for over 12 hours, he also reported palpitations and needlelike stabbing pains throughout his chest. No shortness of breath diaphoresis or lightheadedness. No history or family history of cardiac disease. Patient is a cigarette smoker. Eyes recent fevers chills nausea or vomiting. - Related Data Home Medications Medication Instructions Recorded Confirmed Divalproex ER [Depakote ER] 1,000 mg PO HS 06/09/18 07/03/18 Divalproex ER [Depakote ER] 500 mg PO DAILY 07/03/18 07/03/18 Previous Rx's Medication Instructions Recorded Cyclobenzaprine [Flexeril] 10 mg PO Q8H PRN 30 Days #90 tab 07/08/18 Nicotine Polacrilex [Nicorette] 2 mg BUCCAL Q2HR PRN 30 Days #120 07/08/18 gum Paliperidone IM [Invega Sustenna] 234 mg IM ONCE 28 Days #1 syringe 07/08/18 Allergies Allergy/AdvReac Type Severity Reaction Status Date / Time No Known Allergies Allergy Verified 07/03/18 11:12 Review of Systems ROS Statement: Those systems with pertinent positive or pertinent negative responses have been documented in the HPI. ROS Other: All systems not noted in ROS Statement are negative. Past Medical History Past Medical History: No Reported History History of Any Multi-Drug Resistant Organisms: None Reported Past Surgical History: No Surgical Hx Reported Past Psychological History: No Psychological Hx Reported Smoking Status: Never smoker Past Alcohol Use History: Occasional Past Drug Use History: None Reported General Exam - General Exam Comments Initial Comments: Physical Exam GENERAL: Patient is well-developed and well-nourished. Patient is nontoxic and well-hydrated and is in no distress. HENT: Normocephalic, Atraumatic. EYES: PERRL, EOMI PULMONARY: Unlabored respirations. CARDIOVASCULAR: RRR Warm and well perfused extremities ABDOMEN: Non-distended SKIN: No rashes or bruising : Deferred NEUROLOGIC: Alert and oriented Normal speech Normal gait MUSCULOSKELETAL: Moving all extremities with no apparent injury PSYCHIATRIC: No SI/HI Limitations: no limitations Course Vital Signs 01/20/20 04:27 Temperature 98 F Pulse Rate 90 Respiratory 18 Rate Blood Pressure 132/88 O2 Sat by Pulse 99 Oximetry EKG Findings - EKG Comments: EKG Findings:: EKG was obtained due to chest pain palpitations, EKG was obtained at 4:39 AM, rate is 90 rhythm is sinus there is a normal axis, there are normal intervals, MS 152, QRS 94, QTC 418 there are no acute ST elevations or depressions no evidence of acute ischemia or infarction. Medical Decision Making - Medical Decision Making The patient was seen and evaluated history was obtained from the patient and EMS Labs were obtained Patient is treated with 1 L IV fluid prior to arrival to additional liters were ordered upon arrival EKG is nonischemic Chest x-ray was unremarkable labs resulted with mildly elevated creatinine kinase consistent with exertional rhabdo secondary to the patient walking for 12 hours this was appropriately treated with IV fluids and Toradol Patient rested comfortably for over an hour he was reevaluated he remains asymptomatic comfortable with plan for discharge home - Lab Data Result diagrams: 01/20/20 04:47 01/20/20 04:47 Lab Results 01/20/20 01/20/20 01/20/20 Range/Units 04:47 04:47 04:47 WBC 11.2 H (3.8-10.6) k/uL RBC 5.04 (4.30-5.90) m/uL Hgb 15.0 (13.0-17.5) gm/dL Hct 45.1 (39.0-53.0) % MCV 89.4 (80.0-100.0) fL MCH 29.8 (25.0-35.0) pg MCHC 33.4 (31.0-37.0) g/dL RDW 12.6 (11.5-15.5) % Plt Count 240 (150-450) k/uL Neutrophils % 74 % Lymphocytes % 18 % Monocytes % 5 % Eosinophils % 1 % Basophils % 1 % Neutrophils # 8.3 H (1.3-7.7) k/uL Lymphocytes # 2.0 (1.0-4.8) k/uL Monocytes # 0.6 (0-1.0) k/uL Eosinophils # 0.1 (0-0.7) k/uL Basophils # 0.1 (0-0.2) k/uL Sodium 138 (137-145) mmol/L Potassium 4.3 (3.5-5.1) mmol/L Chloride 107 (98-107) mmol/L Carbon Dioxide 24 (22-30) mmol/L Anion Gap 7 mmol/L BUN 10 (9-20) mg/dL Creatinine 0.81 (0.66-1.25) mg/dL Est GFR (CKD-EPI)AfAm >90 (>60 ml/min/1.73 sqM) Est GFR (CKD-EPI)NonAf >90 (>60 ml/min/1.73 sqM) Glucose 111 H (74-99) mg/dL Calcium 9.0 (8.4-10.2) mg/dL Magnesium 1.9 (1.6-2.3) mg/dL Total Bilirubin 1.1 (0.2-1.3) mg/dL AST 40 (17-59) U/L ALT 47 (4-49) U/L Alkaline Phosphatase 74 (38-126) U/L Creatine Kinase 537 H (55-170) U/L Troponin I <0.012 (0.000-0.034) ng/mL Total Protein 7.1 (6.3-8.2) g/dL Albumin 4.3 (3.5-5.0) g/dL Urine Color Urine Appearance (Clear) Urine pH (5.0-8.0) Ur Specific [place] (1.001-1.035) Urine Protein (Negative) Urine Glucose (UA) (Negative) Urine Ketones (Negative) Urine Blood (Negative) Urine Nitrite (Negative) Urine Bilirubin (Negative) Urine Urobilinogen (<2.0) mg/dL Ur Leukocyte Esterase (Negative) 01/20/20 Range/Units 06:05 WBC (3.8-10.6) k/uL RBC (4.30-5.90) m/uL Hgb (13.0-17.5) gm/dL Hct (39.0-53.0) % MCV (80.0-100.0) fL MCH (25.0-35.0) pg MCHC (31.0-37.0) g/dL RDW (11.5-15.5) % Plt Count (150-450) k/uL Neutrophils % % Lymphocytes % % Monocytes % % Eosinophils % % Basophils % % Neutrophils # (1.3-7.7) k/uL Lymphocytes # (1.0-4.8) k/uL Monocytes # (0-1.0) k/uL Eosinophils # (0-0.7) k/uL Basophils # (0-0.2) k/uL Sodium (137-145) mmol/L Potassium (3.5-5.1) mmol/L Chloride (98-107) mmol/L Carbon Dioxide (22-30) mmol/L Anion Gap mmol/L BUN (9-20) mg/dL Creatinine (0.66-1.25) mg/dL Est GFR (CKD-EPI)AfAm (>60 ml/min/1.73 sqM) Est GFR (CKD-EPI)NonAf (>60 ml/min/1.73 sqM) Glucose (74-99) mg/dL Calcium (8.4-10.2) mg/dL Magnesium (1.6-2.3) mg/dL Total Bilirubin (0.2-1.3) mg/dL AST (17-59) U/L ALT (4-49) U/L Alkaline Phosphatase (38-126) U/L Creatine Kinase (55-170) U/L Troponin I (0.000-0.034) ng/mL Total Protein (6.3-8.2) g/dL Albumin (3.5-5.0) g/dL Urine Color Light Yellow Urine Appearance Clear (Clear) Urine pH 5.5 (5.0-8.0) Ur Specific [place] 1.006 (1.001-1.035) Urine Protein Negative (Negative) Urine Glucose (UA) Negative (Negative) Urine Ketones Negative (Negative) Urine Blood Negative (Negative) Urine Nitrite Negative (Negative) Urine Bilirubin Negative (Negative) Urine Urobilinogen <2.0 (<2.0) mg/dL Ur Leukocyte Esterase Negative (Negative) Disposition Clinical Impression: Exertional rhabdomyolysis Disposition: HOME SELF-CARE Condition: Stable Additional Instructions: Drink plenty of fluids, follow up with your primary care doctor Is patient prescribed a controlled substance at d/c from ED?: No Referrals: None,Stated [Primary Care Provider] - 1-2 days
[2020-01-20 04:54] LABS: Basophils # (A) 0.1 k/uL (0-0.2); Basophils % (A) 1 %; Eosinophils # (A) 0.1 k/uL (0-0.7); Eosinophils % (A) 1 %; HCT 45.1 % (39.0-53.0); Lymphocytes % (A) 18 %; MCH 29.8 pg (25.0-35.0); MCHC 33.4 g/dL (31.0-37.0); MCV 89.4 fL (80.0-100.0); Mean Platelet Volume 6.9; Monocytes # (A) 0.6 k/uL (0-1.0); Monocytes % (A) 5 %; Neutrophils # (A) 8.3 k/uL (1.3-7.7); Neutrophils % (A) 74 %; Platelet Count 240 k/uL (150-450); RBC 5.04 m/uL (4.30-5.90); RDW 12.6 % (11.5-15.5); WBC 11.2 k/uL (3.8-10.6)
[2020-01-20 05:06] LABS: ALT 47 U/L (4-49); AST 40 U/L (17-59); African American GFR (CKD) >90 (>60 ml/min/1.73 sqM); Albumin 4.3 g/dL (3.5-5.0); Alkaline Phosphatase 74 U/L (38-126); Anion Gap 7 mmol/L; Blood Urea Nitrogen 10 mg/dL (9-20); Carbon Dioxide 24 mmol/L (22-30); Chloride 107 mmol/L (98-107); Creatine Kinase 537 U/L (55-170); Glucose 111 mg/dL (74-99); Magnesium 1.9 mg/dL (1.6-2.3); Non-African American GFR(CKD) >90 (>60 ml/min/1.73 sqM); Potassium 4.3 mmol/L (3.5-5.1); Sodium 138 mmol/L (137-145); Total Bilirubin 1.1 mg/dL (0.2-1.3); Total Protein 7.1 g/dL (6.3-8.2)
--- NOTE | 2020-01-20 05:07 | XR ---
EXAMINATION TYPE: XR chest 2V DATE OF EXAM: 01/20/2020 COMPARISON: NONE HISTORY: Chest pain TECHNIQUE: 2 views FINDINGS: Heart and mediastinum are normal. Lungs are clear. Diaphragm is normal. Bony thorax appears normal IMPRESSION: Normal chest.
[2020-01-20] MEDS ORDERED: KETOROLAC 15 MG/ML 1 ML VIAL IVP STA (05:56)
[2020-01-20 06:25] LABS: Appearance,Urine Clear (Clear); Bilirubin,Urine Negative (Negative); Blood,Urine Negative (Negative); Color,Urine Light Yellow; Glucose,Urine (UA) Negative (Negative); Ketones,Urine Negative (Negative); Leukocyte Esterase,Urine Negative (Negative); Nitrite,Urine Negative (Negative); PH, Urine 5.5 (5.0-8.0); Protein,Urine Negative (Negative); Specific Gravity,Urine 1.006 (1.001-1.035); Urobilinogen,Urine <2.0 mg/dL (<2.0)
== END 2020-01-20 07:04 | disposition home or self-care (01) ==
LOC: EC 04:25
DX: M62.82 Rhabdomyolysis (principal); Z79.899 Other long term (current) drug therapy
CPT/HCPCS: 36415; 93005; 80053; 82550; 83735; 84484; 85025; 81003; 71046; 99285; 96374; 96361 ×2; J1885

== ENCOUNTER 2020-01-21 01:23 | Inpatient (IN) | payer MEDICAID, OTHER ==
[2020-01-21] MEDS ORDERED: ZIPRASIDONE 20 MG VIAL IM STA (01:25)
[2020-01-21] MEDS ORDERED: LORazepam 2 MG/ML INJ IM STA (01:25)
--- NOTE | 2020-01-21 01:30 | ED ---
Psych HPI - General Stated Complaint: mental health Time Seen by Provider: 01/21/20 01:25 Limitations: altered mental status - History of Present Illness Initial Comments: Patient is a 34-year-old man brought by ambulance to have psychiatric evaluation. The patient had reportedly gone to the police department and had been displaying delusional believes there. Please phone EMS to have him transported to the hospital. 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 He is not able to cooperate in the history and physical exam. He did make multiple threats against hospital staff. MD Complaint: other -: hour(s) Associated Psychiatric Symptoms: delusions History of same: Yes Quality: changing over time Improves With: none Worsens With: none - Related Data Home Medications Medication Instructions Recorded Confirmed Divalproex ER [Depakote ER] 1,000 mg PO HS 06/09/18 07/03/18 Divalproex ER [Depakote ER] 500 mg PO DAILY 07/03/18 07/03/18 Previous Rx's Medication Instructions Recorded Cyclobenzaprine [Flexeril] 10 mg PO Q8H PRN 30 Days #90 tab 07/08/18 Nicotine Polacrilex [Nicorette] 2 mg BUCCAL Q2HR PRN 30 Days #120 07/08/18 gum Paliperidone IM [Invega Sustenna] 234 mg IM ONCE 28 Days #1 syringe 07/08/18 Allergies Allergy/AdvReac Type Severity Reaction Status Date / Time No Known Allergies Allergy Verified 01/21/20 01:30 Review of Systems ROS Statement: Those systems with pertinent positive or pertinent negative responses have been documented in the HPI. ROS Other: All systems not noted in ROS Statement are negative. Limitations: ROS unobtainable due to patients medical condition Psychiatric: Reports: auditory hallucinations, other (Delusions) Past Medical History Past Medical History: No Reported History History of Any Multi-Drug Resistant Organisms: None Reported Past Surgical History: No Surgical Hx Reported Past Psychological History: No Psychological Hx Reported Smoking Status: Never smoker Past Alcohol Use History: Occasional Past Drug Use History: None Reported General Exam General appearance: alert, anxious Head exam: Present: atraumatic, normocephalic Eye exam: Present: normal appearance, PERRL, EOMI. Absent: scleral icterus, conjunctival injection Neck exam: Present: normal inspection, full ROM Respiratory exam: Present: normal lung sounds bilaterally. Absent: respiratory distress, wheezes, rales, rhonchi, stridor Cardiovascular Exam: Present: normal rhythm, tachycardia, normal heart sounds. Absent: systolic murmur, diastolic murmur, rubs, gallop GI/Abdominal exam: Present: soft. Absent: distended, tenderness, guarding, rebound, rigid Extremities exam: Present: normal inspection Back exam: Present: normal inspection Neurological exam: Present: alert, normal gait. Absent: motor sensory deficit Psychiatric exam: Present: agitated, manic, other (Patient displays disordered thought processes. Patient is displaying paranoid and hyperreligious delusional thought content). Absent: normal mood, flat affect Skin exam: Present: warm, dry, intact, normal color. Absent: rash Course Vital Signs 01/21/20 01:27 Temperature 98.2 F Pulse Rate 115 H Respiratory 18 Rate Blood Pressure 139/73 O2 Sat by Pulse 98 Oximetry Procedures - Restraint - Face to Face Restraint Occurrence 1 Patient's Immediate Situation: Endangers staff safety, Violent behavior Patient's Reaction to the Intervention: Angry, Belligerent, Aggressive Patient's Medical & Behavioral Condition: Awake, Agitated, Paranoid, Bizarre behavior Need to Continue or Terminate Restraint or Seclusion: Continue Face to Face Eval of Restraint Date: 01/21/20 Face to Face Eval of Restraint Time: : Disposition Clinical Impression: Acute psychosis Disposition: ADMITTED IP TO [facility] Condition: Fair Is patient prescribed a controlled substance at d/c from ED?: No Referrals: None,Stated [Primary Care Provider] - 1-2 days
[2020-01-21] MEDS ORDERED: LORazepam 1 MG TAB PO PRN (05:59)
[2020-01-21] MEDS ORDERED: LORazepam 2 MG/ML INJ IM PRN (06:01)
[2020-01-21 06:38] LABS: Appearance,Urine Clear (Clear); Bilirubin,Urine Negative (Negative); Blood,Urine Negative (Negative); Color,Urine Yellow; Glucose,Urine (UA) Negative (Negative); Ketones,Urine Negative (Negative); Leukocyte Esterase,Urine Negative (Negative); Nitrite,Urine Negative (Negative); Protein,Urine Negative (Negative); Specific Gravity,Urine 1.015 (1.001-1.035); Urobilinogen,Urine <2.0 mg/dL (<2.0)
[2020-01-21] MEDS ORDERED: ZIPRASIDONE 20 MG VIAL IM PRN (07:00)
[2020-01-21] MEDS: ACETAMINOPHEN TAB 325 MG TAB PO PRN ×3 (07:04→17:41)
[2020-01-21] MEDS ORDERED: MAGNESIUM HYDROXIDE 2,400 MG/10 ML CUP PO PRN (09:00)
[2020-01-21] MEDS: NICOTINE 21MG/24HR PATCH TRANSDERM SCH (09:02)
[2020-01-21 10:54] LABS: Urine Alcohol Negative (Negative); Urine Barbiturate Negative (Negative); Urine Cocaine Negative (Negative); Urine Methadone Negative (Negative); Urine Opiates Negative (Negative); Urine Phencyclidine Negative (Negative)
--- NOTE | 2020-01-21 12:20 | P.CONS ---
History of Present Illness - Reason for Consult Consult date: 01/21/20 - History of Present Illness Patient is a 34-year-old male with a PMH of bipolar disorder who was brought into the emergency room by police for delusional thoughts and behavior. The patient had reportedly presented to the police station with such behavior. The patient presented to the emergency room the day prior as well for complaints of diffuse body pain after riding his bike and walking excessively. The patient wa s admitted to the mental health unit brain was seen and evaluated. The patient notes continued thigh and calf pain due to his excessive physical activity. He otherwise denied any additional complaints. He notes that anti-inflammatories help with this pain. He denied chest pain, shortness of breath, cough, fever, chills. Denied nausea, vomiting, abdominal pain, or diarrhea. Patient also denied a history of seizure disorder and reports that he takes Depakote for bipolar disorder. Review of Systems Pertinent positives and negatives as discussed in HPI, a complete review of systems was performed and all other systems are negative. Past Medical History Past Medical History: No Reported History History of Any Multi-Drug Resistant Organisms: None Reported Past Surgical History: No Surgical Hx Reported Past Psychological History: No Psychological Hx Reported Smoking Status: Never smoker Past Alcohol Use History: Occasional Past Drug Use History: None Reported Medications and Allergies Home Medications Medication Instructions Recorded Confirmed Type Divalproex ER [Depakote ER] 1,000 mg PO HS 06/09/18 07/03/18 History Divalproex ER [Depakote ER] 500 mg PO DAILY 07/03/18 07/03/18 History Cyclobenzaprine [Flexeril] 10 mg PO Q8H PRN 30 Days #90 tab 07/08/18 Rx Nicotine Polacrilex [Nicorette] 2 mg BUCCAL Q2HR PRN 30 Days #120 07/08/18 Rx gum Paliperidone IM [Invega Sustenna] 234 mg IM ONCE 28 Days #1 syringe 07/08/18 Rx Allergies Allergy/AdvReac Type Severity Reaction Status Date / Time No Known Allergies Allergy Verified 01/21/20 01:30 Physical Exam Vitals: Vital Signs Temp Pulse Pulse Resp BP BP Pulse Ox 01/21/20 06:32 97.7 F 91 18 149/100 99 01/21/20 06:00 98.2 F 115 H 18 139/73 98 01/21/20 01:27 98.2 F 115 H 18 139/73 98 Intake and Output 01/20/20 01/21/20 01/21/20 22:59 06:59 14:59 Other: Weight 118.841 kg General: non toxic, no distress, appears at stated age, obese Derm: no unusual rashes/lesions no unusual ecchymoses, warm, dry Head: atraumatic, normocephalic, symmetric Eyes: EOMI, no lid lag, anicteric sclera, pupils equal round reactive to light ENT: Nose and ears atraumatic, no thrush, no pharyngeal erythema Neck: No thyromegaly, no cervical lymphadenopathy, trachea midline, supple Mouth: no lip lesion, mucus membranes moist Cardiovascular: S1S2 reg, no murmur, positive posterior tibial pulse bilateral, no edema, capillary refill less than 2 seconds Lungs: CTA bilateral, no rhonchi, no rales , no accessory muscle use Abdominal: soft, nontender to palpation, no guarding, no appreciable organomegaly, normal bowel sounds Ext: no gross muscle atrophy, muscle strength 5 out of 5 in all 4 extremities grossly, no contractures, Neuro: CN II-XI grossly intact, light touch intact all 4 extremities, finger to nose within normal limits, Psych: Alert, oriented, appropriate affect Assessment and Plan Plan: Bilateral lower extremity pain likely secondary to overexertion -NSAIDs as needed -Protonix Bipolar disorder with psychosis -As per psychiatry Thank you for allowing us to participate in the care of this patient. We will follow peripherally. Do not hesitate to contact us with questions. Someone can be reached from the [facility] hospitalist group at all hours of the day at [phone].
--- NOTE | 2020-01-21 13:05 | P.HP ---
Psychiatric H&P - . H&P Date: 01/21/20 History & Physical: Allergies Allergy/AdvReac Type Severity Reaction Status Date / Time No Known Allergies Allergy Verified 01/21/20 01:30 Vital Signs Temp 97.7 F 01/21/20 06:32 Pulse 84 01/21/20 12:15 Resp 20 01/21/20 12:15 BP 137/88 01/21/20 12:15 Pulse Ox 99 01/21/20 06:32 Intake & Output 01/20/20 01/21/20 01/21/20 18:59 06:59 18:59 Weight 118.841 kg Laboratory Last Values Urine Color Yellow 01/21/20 06:25 Urine Appearance Clear (Clear) 01/21/20 06:25 Urine pH 6.0 (5.0-8.0) 01/21/20 06:25 Ur Specific [place] 1.015 (1.001-1.035) 01/21/20 06:25 Urine Protein Negative (Negative) 01/21/20 06:25 Urine Glucose (UA) Negative (Negative) 01/21/20 06:25 Urine Ketones Negative (Negative) 01/21/20 06:25 Urine Blood Negative (Negative) 01/21/20 06:25 Urine Nitrite Negative (Negative) 01/21/20 06:25 Urine Bilirubin Negative (Negative) 01/21/20 06:25 Urine Urobilinogen <2.0 mg/dL (<2.0) 01/21/20 06:25 Ur Leukocyte Esterase Negative (Negative) 01/21/20 06:25 Urine Opiates Screen Negative ng/mL (Negative) 01/21/20 06:25 Urine Methadone Screen Negative ng/mL (Negative) 01/21/20 06:25 Ur Propoxyphene Screen Negative ng/mL (Negative) 01/21/20 06:25 Urine Barbiturates Negative ng/mL (Negative) 01/21/20 06:25 Ur Phencyclidine Scrn Negative ng/mL (Negative) 01/21/20 06:25 Ur Amphetamine Screen Negative ng/mL (Negative) 01/21/20 06:25 U Benzodiazepines Scrn Negative ng/mL (Negative) 01/21/20 06:25 Urine Cocaine Screen Negative ng/mL (Negative) 01/21/20 06:25 U Cannabinoids Screen Negative ng/mL (Negative) 01/21/20 06:25 Urine Alcohol Negative mg/dL (Negative) 01/21/20 06:25 01/21/20 12:55 IDENTIFYING DATA: Patient is a 34-year-old male with a significant history of bipolar disorder who was admitted for manic behavior. HPI: Patient presented to the hospital on 01/21/2020 accompanied by police after presenting to the police department with delusional thoughts and behaviors. The patient history Limited due to severity of his alverto at this time. Patient is endorsing significant manic symptoms including grandiosity, psychosis, pressured speech, racing thoughts, flight of ideas, and increased goal-directed behavior. He is also very intrusive and impulsive. He is very religiously preoccupied. He states that he is currently brought to the hospital to "prove a point to the [email or web address]." He is not endorsing any suicidal or homicidal ideation, intention, and/or plan. He does report that if he will be bothered by anyone that he is willing to fight them. In regards to medications, patient is unable to recall what other medications he has been taking aside from the Depakote. She also reports that he does not require these medications as they are not "medications from God." He is denying that these are auditory hallucinations but messages straight from God into his body. PAST PSYCHIATRIC HISTORY: Upon review of this patient's medical chart, patient was previously admitted to [facility] in June 2018 for similar manic behavior. He was stabilized at the time of using Invega and Depakote. He was transitioned to the long-acting injectable. He reports prior trials of medications but is only able to recall Depakote. After review of his patient chart, patient was also present prescribe a result he. Patient states that he was discharged from the outpatient psychiatric treatment. Unable to determine if the patient has previously tried to suicide. PMH:denies ALLERGIES: as per EMR CHEMICAL DEPENDENCY HISTORY: Unable to obtain at this time FAMILY PSYCHIATRIC/SUBSTANCE USE HISTORY: Unable to obtain at this time SOCIAL HISTORY: Unable to obtain at this time. MENTAL STATUS EXAM: General Appearance: Patient appears to be stated age is alert, indirectable, and is intermittently cooperative. Patient appears to have fair hygiene and grooming. Behavior: Patient is unable to sit still. Psychomotor activity is elevated. Patient is very expressive with his hands. Speech: Patient's speech is pressured, high in volume, rapid in rate, tangential. Mood/Affect: Patient reports their mood is "great," affect is expansive and euphoric. Suicidality/Homicidality: Patient noted vague homicidal statements. Could not obtain any suicidal ideation at this time. Perceptions: Patient denies any visual hallucinations but possible auditory hallucinations in the form of congregational messaging. Though content/process: Grandiose delusions, religiously preoccupied, flight of ideas Memory and concentration: AOX3, grossly intact for the purposes of this session. Can spell "WORLD" backwards Judgment and insight: poor STRENGTHS/WEAKNESSES: strength is that patient is resilient. Weakness is that patient has poor judgment and is impulsive INTELLECT: average IMPRESSIONS: Bipolar disorder, type I, current episode manic PLAN: -Patient is admitted under involuntary status to [facility] for stabilization of psychiatric symptoms and safety. A second certification was completed and along with petition will be filed for court. -Medications : Will start patient on Invega 3 mg by mouth at bedtime with the plan to transition the patient to Invega Sustenna. Review the patient's chart revealed that the patient did well with this medication. We'll obtain Depakote and lithium levels. Patient reports that he was on lithium prior to this admission, but his home medications listed in the EMR list Depakote only. -Ativan and Geodon PRN for agitation/aggression -Patient was informed of the risks, benefits and side effects of the medication and patient verbally consented to taking the medications. -Internal Medicine consult to perform medical evaluation and physical. -SW on board for discharge planning. Encourage patient to participate in groups to work on coping skills.
[2020-01-21] MEDS ORDERED: PALIPERIDONE 3 MG TAB.ER.24 PO SCH (21:00)
[2020-01-22] MEDS ORDERED: diphenhydrAMINE 50 MG CAP PO STA (01:26)
[2020-01-22] MEDS ORDERED: hydrOXYzine pamoate 25 MG CAP PO PRN (02:27)
--- NOTE | 2020-01-22 02:30 | P.MHFACE ---
Face to Face Restrain/Seclus - Evaluation Patient's Immediate Situation: Endangers staff safety, Violent behavior Patient's Reaction to the Intervention: Angry, Hostile, Anxious Patient's Medical & Behavioral Condition: Awake, Alert, Agitated, Homicidal thoughts, Bizarre behavior Need to Continue or Terminate Restraint or Seclusion: Continue
[2020-01-22] MEDS ORDERED: HALOPERIDOL LACTATE 5 MG/ML 1 ML VIAL IM PRN (02:41)
[2020-01-22] MEDS ORDERED: LORazepam 1 MG TAB PO PRN ×2 (02:41→07:10)
[2020-01-22] MEDS ORDERED: LORazepam 2 MG/ML INJ IM PRN ×2 (02:42→07:10)
[2020-01-22] MEDS: NICOTINE 21MG/24HR PATCH TRANSDERM SCH (08:36)
[2020-01-22] MEDS ORDERED: PALIPERIDONE 3 MG TAB.ER.24 PO SCH (09:00)
[2020-01-22 09:04] LABS: Basophils # (A) 0.1 k/uL (0-0.2); Basophils % (A) 1 %; Eosinophils # (A) 0.3 k/uL (0-0.7); Eosinophils % (A) 3 %; HCT 46.1 % (39.0-53.0); HGB 15.3 gm/dL (13.0-17.5); Lymphocytes % (A) 34 %; MCH 29.8 pg (25.0-35.0); MCHC 33.2 g/dL (31.0-37.0); MCV 89.8 fL (80.0-100.0); Mean Platelet Volume 6.7; Monocytes # (A) 0.5 k/uL (0-1.0); Monocytes % (A) 6 %; Neutrophils # (A) 4.7 k/uL (1.3-7.7); Neutrophils % (A) 54 %; Platelet Count 247 k/uL (150-450); RBC 5.14 m/uL (4.30-5.90); RDW 13.2 % (11.5-15.5); WBC 8.6 k/uL (3.8-10.6)
[2020-01-22 09:15] LABS: ALT 51 U/L (4-49); AST 46 U/L (17-59); African American GFR (CKD) >90 (>60 ml/min/1.73 sqM); Albumin 4.5 g/dL (3.5-5.0); Alkaline Phosphatase 65 U/L (38-126); Anion Gap 7 mmol/L; Bilirubin, Delta 0.2 mg/dL (0.0-0.2); Bilirubin,Unconjugated 0.9 mg/dL (0.0-1.1); Blood Urea Nitrogen 9 mg/dL (9-20); Calcium 9.4 mg/dL (8.4-10.2); Carbon Dioxide 28 mmol/L (22-30); Chloride 106 mmol/L (98-107); Cholesterol 179 mg/dL (<200); Glucose 103 mg/dL (74-99); HDL Cholesterol 48 mg/dL (40-60); LDL Cholesterol,Calculated 116 mg/dL (0-99); Non-African American GFR(CKD) >90 (>60 ml/min/1.73 sqM); Potassium 4.2 mmol/L (3.5-5.1); Sodium 141 mmol/L (137-145); Total Bilirubin 1.1 mg/dL (0.2-1.3); Total Protein 7.5 g/dL (6.3-8.2); Triglycerides 73 mg/dL (<150)
[2020-01-22] MEDS: DIVALPROEX 250 MG TABLET.DR PO SCH ×3 (09:29→20:54)
--- NOTE | 2020-01-22 09:41 | P.PN ---
Progress Note - Text Progress Note Date: 01/22/20 Interval History: Patient was seen wandering the hallways and was directable and agreeable to speak with expert medical writer in the office. Patient continues to report that he is chosen by God to disrupt the system. He expresses that he was upset with how he was treated yesterday as he felt like he was not treated with "love." Yesterday, patient was noted to be very agitated and required restraints. He continues to present as manic, with symptoms of grandiosity, impulsivity, intrusiveness, and pressured speech. Currently he is not endorsing any significant symptoms of depression. At this time patient denies any suicidal or homicidal ideations, intent or plan. Patient denies any auditory, visual hallucinations and denies any paranoia or delusions. Patient denies any side effects from the medications and has been compliant with meds. Mental Status Exam: General Appearance: Patient appears to be stated age is alert, directable, and cooperative. Behavior: Psychomotor activity is elevated. Patient is intrusive. Speech: Patient's speech is fluent, pressured, tangential at times Mood/Affect: Mood is "irritated," affect is labile and expansive in range. Suicidality/Homicidality: Patient denies having any suicidal or homicidal ideation intent or plan. Perceptions: Patient denies any visual hallucinations and denies any auditory hallucinations Though content/process: Flight of ideas and mandaen preoccupation Memory and concentration: AOX3, grossly intact for the purposes of this session Judgment and insight: Improving mildly Assessment Bipolar disorder, type I, current episode manic Plan: -Patient continues to meet criteria for inpatient psychiatric admission for symptom stabilization and safety. Patient was admitted involuntarily. Petition and certification process is ongoing. -Medications: Start Depakote 250 mg by mouth 3 times a day for mood stabilization Increase Invega to 3 mg by mouth twice a day with plans to increase to 3 mg daily, 6 mg qhs tomorrow in preparation to transition him to Invega Sustenna. Review of patient's past admissions as well as collateral information provided by the patient's reports that the patient did well with Invega Sustenna. We will start lithium 150 mg by mouth twice a day tomorrow. -When necessary Ativan, Haldol/Benadryl for agitation/aggression. -SW on board for discharge planning. Encouraged the patient to participate in milieu.
[2020-01-22 09:57] LABS: Lithium <0.2 mmol/L
[2020-01-22 10:05] LABS: Valproic Acid (Depakene) <10.0 ug/mL
[2020-01-22] MEDS: ACETAMINOPHEN TAB 325 MG TAB PO PRN ×2 (11:46→16:00)
[2020-01-22] MEDS: IBUPROFEN 600 MG TAB PO PRN ×2 (13:32→20:55)
[2020-01-22 16:33] LABS: Hemoglobin A1C 5.4 % (4.0-6.0)
--- NOTE | 2020-01-22 19:57 | P.EN ---
About 2AM on 01/22/2020, after I finished evaluating another patient and left her room with the RN Kandi., I found this patient Rip, whom i never had any personal interaction with before, waiting in the hallway and immediately asked if he can talk to me. I said sure, but we need to know if I am your medical doctor first and usually you would talk to your RN first to see if your concern is related to mental health or medical , and I said this while looking at both the patient and his RN. However, he did not wait for any clarification, and approached me standing inches away from my face, and started by saying that I swore an Oath to help patients, and that I should listen to him no matter what. then he started to raise his tone of voice, and I do not remember his exact wording but it was with a threatening tone, and said something about him being GOD, or sent from God, and that he has the power to kill me now, but luckily he is giving me a second chance and will let me live this time. I started walking backwards to keep a distance, then another patient (who seems to be his friend) jumped in after he heard Rip screaming at me , and was asking him to calm down, meanwhile, I was hinting to the Nurse aid to call Mr. mason (security). and left the unit. then I was notified by RN , to come do a face to face evaluation, as he was placed in seclusion. as I was outside his seclusion room, the RN was updating me about what happened after I left the unit, She mentioned that he told her that he was upset because while I was passing by the desk earlier he expected me to say Hi but I did not. Before she had to finish the whole story, it seems like he heard and recognized my voice and asked to talk to me, so I interrupted the RN and walked in to his room. He immediately stated in a nice tone initially , that this is my fault that he ended up in seclusions, I replied that this is unfortunate but temporary for every ones safety , he interrupted and started using a threatening tone, saying that He got the power and I should submit to that or he will kill me. seeing that he is getting worked up again, I decided to leave the room to help his calm down and notified the RN to discontinue the restraints once he calms down and behaves appropriately. and to try and minimize interactions with me , as it seems to agitate him. I was not sure at that point if he had threatened anyone else at that point, but it did not seem to be the case. next morning I had a brief conversation with Dr Terry over the phone and Dr. Mcneil to inform them about the incident, asking for advise on how to approach this matter, and wether it was safe for me to go to the unit again. Dr. Terry suggested that I have security on the unit whenever I have to go there to eval uate any patient as long as Rip was still there.
[2020-01-22] MEDS ORDERED: PALIPERIDONE 6 MG TAB.ER.24 PO SCH (21:00)
[2020-01-22] MEDS ORDERED: PALIPERIDONE 3 MG TAB.ER.24 PO ONE (21:00)
[2020-01-23] MEDS ORDERED: LITHIUM CARBONATE 150 MG CAP PO SCH ×2 (00:01→09:00)
[2020-01-23] MEDS: MAG HYDROX/AL HYDROX/SIMETH 30 ML CUP PO PRN (02:20)
[2020-01-23] MEDS: IBUPROFEN 600 MG TAB PO PRN ×3 (03:27→20:42)
[2020-01-23] MEDS: PALIPERIDONE 3 MG TAB.ER.24 PO SCH (08:13)
[2020-01-23] MEDS: NICOTINE 21MG/24HR PATCH TRANSDERM SCH (08:14)
[2020-01-23] MEDS: DIVALPROEX 250 MG TABLET.DR PO SCH ×3 (08:14→20:41)
[2020-01-23] MEDS ORDERED: PALIPERIDONE IM 234 MG/1.5 ML SYG IM STA (12:30)
[2020-01-23] MEDS: LITHIUM CARBONATE 300 MG CAP PO SCH ×2 (13:36→20:41)
[2020-01-23] MEDS: ACETAMINOPHEN TAB 325 MG TAB PO PRN (16:11)
[2020-01-23] MEDS: PALIPERIDONE 6 MG TAB.ER.24 PO SCH (20:42)
--- NOTE | 2020-01-23 22:12 | PN ---
PROGRESS NOTE DATE OF SERVICE: 01/23/2020. CHIEF COMPLAINT: The patient was manic with disorganized thoughts. He was religiously preoccupied and delusional. INTERVAL HISTORY: The patient has been doing fair. He continues to have significant manic symptoms. Yesterday he was out in the day area. He wanders about. He can be quite intense at times. I would refer the reader to the group note for the exercise leisure education group for documentation regarding his function and thought process. It is noteworthy that he generally has been cooperative with care. He has been attending groups, though can be intense and needing some support in order to stay on track with the group. He apparently did have an episode of breaking a computer a day before. He slept fair last night. Today, he has been up. He talked about the episode of breaking the computer, though it was difficult to follow his train of thought. He describes things in vague ways about his motivation as well as his interactions with others. He has been cooperative with taking his medications. He has not had any significant complaints or concerns regarding his medications. MENTAL STATUS: Patient sat with some restlessness. He gave fairly good eye contact. He answered some questions appropriately. At times, he tended to ramble and would make tangential statements. His affect was intense. His mood somewhat elevated. He made a number of references that sounded delusional in nature. He did not voice any thoughts of harm. He was oriented to his circumstances and surroundings. ASSESSMENT: I will continue the current diagnosis and treatment plan. We will continue to make efforts to engage the patient in individual and group therapeutic activities. The patient is showing significant manic symptoms as per Dr. Caldera. The plan is to initiate Invega Sustenna given that he has been on Invega Sustenna previously. I will start him on Invega Sustenna 234 mg IM 1 dose today. Given his continued manic symptoms, I will increase lithium to 600 mg twice a day and increase Depakote to 750 mg twice a day. He will continue Invega oral 3 mg in the morning, 6 mg at bedtime. I will get Depakote and lithium levels in 2 days. I made an effort to review medication issues with the patient. It was not clear he could follow the conversation in any productive way. I did briefly review symptoms related to possible lithium toxicity. We will focus on stabilization and discharge planning. MMODL / IJN: [id number] /
[2020-01-24] MEDS ORDERED: diphenhydrAMINE 50 MG CAP PO ONE (00:04)
[2020-01-24] MEDS: MAG HYDROX/AL HYDROX/SIMETH 30 ML CUP PO PRN ×3 (00:48→16:12)
[2020-01-24] MEDS: NICOTINE 21MG/24HR PATCH TRANSDERM SCH (08:12)
[2020-01-24] MEDS: PALIPERIDONE 3 MG TAB.ER.24 PO SCH (08:44)
[2020-01-24] MEDS: DIVALPROEX 250 MG TABLET.DR PO SCH ×2 (08:44→20:32)
[2020-01-24] MEDS: LITHIUM CARBONATE 300 MG CAP PO SCH ×2 (08:44→20:32)
--- NOTE | 2020-01-24 09:55 | PN ---
PROGRESS NOTE DATE OF SERVICE: 01/24/2020. CHIEF COMPLAINT: The patient was manic with disorganized thoughts. He was religiously preoccupied and delusional. INTERVAL HISTORY: The patient has been doing fair. He had a quiet day yesterday. He attends groups. Group leaders have noted that at times he may tend to dominate some of the group discussions. For his part, he says that he talks because other people do not talk. He comes out in the day area. He interacts with others. He seems fairly energetic, though not clearly manic. He said that he got quite distressed last evening when he had a telephone call from his . She was crying profusely as were his children who were on the telephone. He said he needed a Benadryl to help with sleep. He had said he did sleep 8 hours last night after he got the Benadryl. Today, he has been up. He continues to do the same. He says his main concern is the fact that his has to go to court on Saturday for driving on a suspended license. He described it as quite a complicated situation that has been going on through the courts for a few years. He says she faces 1 year in [facility]. He is very worried about that given the fact that they have I believe 5 children at home, 2 that are his biologic and 3 that are hers. He says overall he is feeling better with the current medications. He has not had problems with the increase in medications. He believes that both with the Invega Sustenna shot plus the oral medications that he is improving in his mood and thoughts. It is noted that he came into the office a few hours after I saw him. He began talking about some issues of plots, and that if he wasn't discharged by Saturday he would be able to stop all the patients on the unit from taking there medications, and that he would do that through some communication with god. He made reference to supernatural philip he has. He also has been stating he needed to be discharged by Saturday because his has a court hearing on that day and could be facing a year in nursing home. I had a telephone contact with the patients . She stated he has had a very difficult time with prolonged hospitalizations. It sounded as if he would get admitted for alverto, but through treatment for alverto he would regresses into depression. suggested he may have had destabilization in the past on antidepressants. She said at one point he was on low dose lithium which was helpful. She said his main problems have been with Depression, as opposed to alverto. She indicated he has a good connection with his [facility] therapist, Rani Roldan. noted she has a court hearing on Saturday that is to determine if she can get her drivers license reinstated. MENTAL STATUS EXAM: Patient was somewhat restless. He gave good eye contact. He answered questions appropriately. His thoughts were clear. His affect was in a reasonable range. He smiled quite a bit through the interview. His mood was mildly elevated. He did not appear to be distressed. He did not show any outward signs of thought disorder. It is noted that he did not make any comments in the religion realm, which he did make references to yesterday. There was no indication of thoughts of harm. Cognition was clear. ASSESSMENT: I will continue the current diagnosis and treatment plan. The patient appears to be a little less in the manic range today compared to yesterday. He is quite concerned as noted above about his going to court on Saturday and could face a year in [facility], which is not at all what his stated. He did not make any specific request in regard to discharge planning, though hopes to be discharged soon. He did not offer any thoughts about the possibility of his being in the hospital and his being jailed for her driving issues. He does continue to show some destabilization in mood. He will get a Depakote level and lithium level on Saturday. I discussed both with the patient and with his that we will aim for a relatively short hospital stay, though I expressed concern regarding the unstable mood that he has been showing today. We will focus on stabilization and discharge plan. MMODL / IJN: [id number] / ALAN
--- NOTE | 2020-01-24 17:15 | XR ---
EXAMINATION TYPE: XR KUB portable DATE OF EXAM: 01/24/2020 COMPARISON: NONE HISTORY: Abdominal pain TECHNIQUE: 2 views supine FINDINGS: Bowel gas pattern is normal. There is no sign of intestinal obstruction or pneumoperitoneum . Fecal pattern is normal. There is no sign of a mass. There is no evidence of pleural effusion. Ther e are no pathologic calcifications over the kidneys. IMPRESSION: Nonacute abdomen.
[2020-01-24] MEDS: IBUPROFEN 600 MG TAB PO PRN (20:32)
[2020-01-24] MEDS: PALIPERIDONE 6 MG TAB.ER.24 PO SCH (20:32)
[2020-01-24] MEDS: ACETAMINOPHEN TAB 325 MG TAB PO PRN (23:33)
[2020-01-25] MEDS ORDERED: PANTOPRAZOLE 40 MG TABLET PO STA (00:45)
[2020-01-25] MEDS: ONDANSETRON 4 MG TAB PO PRN ×2 (01:00→22:30)
[2020-01-25] MEDS: DIVALPROEX 250 MG TABLET.DR PO SCH ×2 (08:31→20:05)
[2020-01-25] MEDS: LITHIUM CARBONATE 300 MG CAP PO SCH ×2 (08:31→20:04)
[2020-01-25] MEDS: NICOTINE 21MG/24HR PATCH TRANSDERM SCH (08:31)
[2020-01-25] MEDS: PALIPERIDONE 3 MG TAB.ER.24 PO SCH ×2 (08:32→20:04)
[2020-01-25] MEDS: IBUPROFEN 600 MG TAB PO PRN ×3 (08:32→20:04)
--- NOTE | 2020-01-25 09:58 | P.PN ---
Subjective Progress Note Date: 01/25/20 I was asked to see the patient secondary to ongoing flank and abdominal pain. Patient seen and examined by me in his room. Patient informed me that his pain started yesterday in the epigastric area and going all over his abdomen down to his groin on both sides. He reports some nausea but no vomiting. He reports significant relief with Zofran. Patient said that he had a normal bowel movement yesterday. This morning his abdominal pain has resolved but now is complaining of flank pain bilaterally. He denies any dysuria or hematuria. He is rating his pain as 8 out of 10 in severity. Objective - Vital Signs Vital signs: Vital Signs Temp 97.6 F 01/25/20 08:30 Pulse 113 H 01/25/20 08:30 Resp 20 01/25/20 08:30 BP 148/76 01/25/20 08:30 Pulse Ox 98 01/25/20 08:30 Intake & Output 01/24/20 01/25/20 01/25/20 18:59 06:59 18:59 Weight 119.6 kg - Exam General: The patient is awake and alert, in no distress Eye: there is normal conjunctiva bilaterally. Neck: The neck is supple, there is no JVD. Cardiovascular: Normal S1-S2, no S3-S4, no murmurs. Respiratory: Lungs clear to auscultation bilaterally Gastrointestinal: Abdomen is soft, nontender Musculoskeletal: There is no pedal edema. Neurological:. Speech is normal. Skin: Skin is warm and dry - Labs CBC & Chem 7: 01/22/20 08:42 01/22/20 08:42 Assessment and Plan Assessment: 1. Bilateral flank pain with nausea, I would obtain urinalysis for further evaluation. Urinalysis few days ago was completely normal. Abdominal x-ray with non acute abdomen. Symptoms not be attributed to muscle pain/spasm. I would order one-time dose of Flexeril 5 mg. 2. Underlying bipolar disorder, managed by psychiatry
--- NOTE | 2020-01-25 11:22 | P.PN ---
Progress Note - Text Progress Note Date: 01/25/20 Interval History: Patient was seen wandering the hallways and was directable and agreeable to speak with account underwriter in the office. Patient expresses a strong desire for discharge. He expresses that his is going to court over driving with a suspended license and may face up to a year in [facility]. He states that he would like to be discharged so that he may see his before she goes to [facility]. He continues to express some uatsdin preoccupation stating that he is filled with God's love and that his authorities granted to him by God but is less forthcoming with this as before. At this time patient denies any suicidal or homical ideations, intent or plan. Patient denies any auditory, visual hallucinations and denies any paranoia. He does express numerous somatic complaints including "kidney pain," abdominal pain and had episodes of nausea and vomiting over the weekend. He has been evaluated by the medicine doctor who has given him a 1 time dose of Flexeril to aid with muscle spasms. Mental Status Exam: General Appearance: Patient appears to be stated age is alert, directable, and cooperative. Behavior: Psychomotor activity is elevated. Speech: Patient's speech is fluent, pressured, rapid. Mood/Affect: Mood is improving mildly, affect is less expansive but labile. At times euphoric or irritable. Suicidality/Homicidality: Patient denies having any suicidal or homicidal ideation intent or plan. Perceptions: Patient denies any visual hallucinations and denies any auditory hallucinations Though content/process: Mormonism preoccupation and grandiose delusions. Memory and concentration: AOX3, grossly intact for the purposes of this session Judgment and insight: Improving mildly Assessment Bipolar disorder, type I, current episode manic Plan: -Patient continues to meet criteria for inpatient psychiatric admission for symptom stabilization and safety. Patient deferred court. -Medications: Patient received Invega Sustenna 234 mg IM on 01/23/2020. We will go down on his oral Invega to 3 mg twice a day with plans to administer the second dose of Invega Sustenna 156 mg IM on 01/27/2020. Continue lithium 600 mg by mouth twice a day for mood stabilization Continue Depakote 750 mg by mouth twice a day for mood stabilization -Depakote and lithium levels were drawn today. We will also order [facility] to monitor kidney and liver function. -When necessary Ativan and Haldol/Benadryl for agitation/aggression. -SW on board for discharge planning. Encouraged the patient to participate in milieu.
[2020-01-25 11:33] LABS: ALT 59 U/L (4-49); AST 39 U/L (17-59); African American GFR (CKD) >90 (>60 ml/min/1.73 sqM); Albumin 4.7 g/dL (3.5-5.0); Alkaline Phosphatase 69 U/L (38-126); Anion Gap 10 mmol/L; Blood Urea Nitrogen 9 mg/dL (9-20); Calcium 9.9 mg/dL (8.4-10.2); Carbon Dioxide 24 mmol/L (22-30); Chloride 103 mmol/L (98-107); Glucose 141 mg/dL (74-99); Non-African American GFR(CKD) >90 (>60 ml/min/1.73 sqM); Potassium 4.4 mmol/L (3.5-5.1); Sodium 137 mmol/L (137-145); Total Bilirubin 1.2 mg/dL (0.2-1.3); Total Protein 7.9 g/dL (6.3-8.2)
[2020-01-25 12:45] LABS: Appearance,Urine Clear (Clear); Bilirubin,Urine Negative (Negative); Blood,Urine Negative (Negative); Color,Urine Light Yellow; Glucose,Urine (UA) Negative (Negative); Ketones,Urine Trace (Negative); Leukocyte Esterase,Urine Negative (Negative); Nitrite,Urine Negative (Negative); PH, Urine 6.5 (5.0-8.0); Protein,Urine Negative (Negative); Specific Gravity,Urine 1.006 (1.001-1.035); Urobilinogen,Urine <2.0 mg/dL (<2.0)
[2020-01-25] MEDS ORDERED: CYCLOBENZAPRINE 5 MG TAB PO STA (14:33)
[2020-01-25] MEDS: ACETAMINOPHEN TAB 325 MG TAB PO PRN (17:08)
[2020-01-25] MEDS: diphenhydrAMINE 50 MG/ML 1 ML VIAL IM PRN (20:05)
[2020-01-26] MEDS: MAG HYDROX/AL HYDROX/SIMETH 30 ML CUP PO PRN ×3 (00:22→23:22)
[2020-01-26] MEDS: ACETAMINOPHEN TAB 325 MG TAB PO PRN ×2 (00:23→20:06)
[2020-01-26] MEDS ORDERED: KETOROLAC 15 MG/ML 1 ML VIAL IM STA (01:10)
--- NOTE | 2020-01-26 01:52 | CT ---
EXAMINATION TYPE: CT abdomen pelvis wo con DATE OF EXAM: 01/26/2020 COMPARISON: None HISTORY: Bilateral Flank Pain, R/O Stones CT DLP: 1125.40 mGycm Automated exposure control for dose reduction was used. Images were obtained from the diaphragm to the floor the pelvis with no contrast. Lung bases are clear. There is no pleural effusion. Heart size is normal. There is no pericardial eff usion. There is 1 cm calcified gallstone. Liver shows no focal defect. The bile ducts are not dilated . Stomach is intact. Spleen appears normal. There is no pancreatic mass. There is no adrenal mass. Kidneys have normal size. There is no hydronephrosis. Ureters are not dilat ed. There is no retroperitoneal adenopathy. Bladder distends smoothly. There is no inguinal hernia. T here is no free fluid in the pelvis. Appendix is posterior and appears normal. There is no mesenteric edema. There is no ascites or free a ir. There is no bowel obstruction. Lumbar vertebra have normal spacing and alignment. Posterior eleme nts are intact. The bony pelvis is intact. There is no evidence of a renal calculus. IMPRESSION: Negative exam. No evidence of renal stone or obstruction. Normal appendix. Single small calcified gallstone.
[2020-01-26] MEDS: diphenhydrAMINE 50 MG/ML 1 ML VIAL IM PRN (04:14)
[2020-01-26 04:50] VITALS: RESP 16
[2020-01-26] MEDS: NICOTINE 21MG/24HR PATCH TRANSDERM SCH (08:22)
[2020-01-26] MEDS: PALIPERIDONE 3 MG TAB.ER.24 PO SCH ×2 (08:23→20:04)
[2020-01-26] MEDS: DIVALPROEX 250 MG TABLET.DR PO SCH ×2 (08:23→20:04)
[2020-01-26] MEDS: LITHIUM CARBONATE 300 MG CAP PO SCH ×2 (08:23→20:04)
[2020-01-26] MEDS ORDERED: CYCLOBENZAPRINE 10 MG TAB PO STA (10:15)
--- NOTE | 2020-01-26 10:43 | P.PN ---
Progress Note - Text Progress Note Date: 01/26/20 Interval History: Patient was seen wandering the hallways and was directable and agreeable to speak with food writer in the office. Patient continues to express significant somatic symptoms including abdominal pain and lower back pain. Despite being seen by the medical team, there have been no diagnostic signs of significant pathology. Patient expresses that all he did yesterday was raised his voice. He did not require restraints but required IM Haldol/Benadryl to calm him down. He does express some remorse for his actions and states that he would do his best to behave tonight. He is not reporting any significant symptoms of alverto today aside from mild grandiosity. He is not displaying any pressured speech, impulsivity, or confucianism preoccupation today. At this time patient denies any suicidal or homical ideations, intent or plan. Patient denies any auditory, vi sual hallucinations and denies any paranoia or delusions. Patient denies any side effects from the medications and has been compliant with meds. He is requesting Flexeril to aid with his lower back pain. Mental Status Exam: General Appearance: Patient appears to be stated age is alert, directable, and cooperative. Behavior: Patient is calmly seated without any agitated behavior. Speech: Patient's speech is fluent and nonpressured. Mood/Affect: Mood is improving mildly, affect is congruent and constricted. Suicidality/Homicidality: Patient denies having any suicidal or homicidal ideation intent or plan. Perceptions: Patient denies any visual hallucinations and denies any auditory hallucinations Though content/process: There is no evidence of any delusional thought content and thought process is linear and goal-directed. Memory and concentration: AOX3, grossly intact for the purposes of this session Judgment and insight: Improving mildly Assessment Bipolar disorder, type I, current episode manic Plan: -Patient continues to meet criteria for inpatient psychiatric admission for symptom stabilization and safety. Patient deferred on 01/26/2020. -Medications: Continue Invega 3 mg by mouth twice a day. Patient received Invega Sustenna 234 mg IM on 01/23/2020. We will administer Invega Sustenna 156 kg IM tomorrow. Decrease lithium to 300 mg by mouth twice a day for mood stabilization and for drug drug interactions with Depakote. We will change Depakote to XR formulation at 1500 mg at bedtime We will start Flexeril 10 mg by mouth at bedtime for back pain Benadryl 50 mg by mouth at bedtime for insomnia. -When necessary Ativan and Haldol/Benadryl for agitation/aggression. -SW on board for discharge planning. Encouraged the patient to participate in milieu.
[2020-01-26] MEDS: IBUPROFEN 600 MG TAB PO PRN ×2 (14:29→23:18)
[2020-01-26] MEDS ORDERED: PALIPERIDONE 6 MG TAB.ER.24 PO SCH (21:00)
[2020-01-26] MEDS ORDERED: CYCLOBENZAPRINE 10 MG TAB PO SCH (21:00)
[2020-01-26] MEDS ORDERED: diphenhydrAMINE 50 MG CAP PO SCH (21:00)
[2020-01-26] MEDS ORDERED: DIVALPROEX ER 500 MG TAB.ER.24H PO SCH (21:00)
[2020-01-27] MEDS: ONDANSETRON 4 MG TAB PO PRN (01:50)
[2020-01-27] MEDS ORDERED: bisacodyL 5 MG TABLET.DR PO STA (02:50)
[2020-01-27] MEDS: IBUPROFEN 600 MG TAB PO PRN (05:51)
[2020-01-27 06:25] VITALS: BP 131/79; PULSE 119; TEMP 98.1
[2020-01-27] MEDS: NICOTINE 21MG/24HR PATCH TRANSDERM SCH (07:46)
[2020-01-27] MEDS: LITHIUM CARBONATE 300 MG CAP PO SCH (07:46)
[2020-01-27] MEDS: PALIPERIDONE 3 MG TAB.ER.24 PO SCH (07:46)
[2020-01-27] MEDS ORDERED: PALIPERIDONE IM 156 MG/ML SYG IM STA (08:34)
[2020-01-27] MEDS ORDERED: PALIPERIDONE 3 MG TAB.ER.24 PO SCH (09:00)
--- NOTE | 2020-01-27 09:07 | P.DS ---
Providers Date of admission: 01/21/20 05:58 Expected date of discharge: 01/27/20 Attending physician: Ace Lobo MD Consults: 01/21/20 05:59 Consult Physician Routine Consulting Provider: Kuldeep Bah Consult Reason/Comments: H & P Do you want consulting provider notified?: Already Contacted Primary care physician: Stated None - Discharge Diagnosis(es) (1) Bipolar 1 disorder Current Visit: Yes Status: Acute Priority: High (2) Tobacco abuse Current Visit: Yes Status: Chronic Priority: Medium Hospital Course: Admission HPI: Patient is a 34-year-old male with a significant history of bipolar disorder who was admitted for manic behavior. He presented to the hospital after going to the police station and being intrusive and religiously preoccupied. Patient presented to the hospital on 01/21/2020 accompanied by police after presenting to the police department with delusional thoughts and behaviors. The patient history Limited due to severity of his alverto at this time. Patient is endorsing significant manic symptoms including grandiosity, psychosis, pressured speech, racing thoughts, flight of ideas, and increased goal-directed behavior. He is also very intrusive and impulsive. He is very religiously preoccupied. He states that he is currently brought to the hospital to "prove a point to the world government." He is not endorsing any suicidal or homicidal ideation, intention, and/or plan. He does report that if he will be bothered by anyone that he is willing to fight them. In regards to medications, patient is unable to recall what other medications he has been taking aside from the Depakote. She also reports that he does not require these medications as they are not "medications from God." He is denying that these are auditory hallucinations but messages straight from God into his body. Hospital course: Upon admission to the unit patient was initially very manic, grandiose, and religiously preoccupied. Patient was however directable and agreeable to commence treatment. Patient got along well with other patients on the unit and followed unit protocol. Patient was compliant with the medications and denied any side effects throughout hospital course. Patient was started on Depakote and Invega with plans to transition him to Invega Sustenna. Patient spoke of his stressors and engaged in therapy both group and individual. Patient was also seen by medical team for history and physical exam. Patient has reportedly also been on lithium in the past which has helped him significantly in terms of bipolar depression as per patient. During the hospitalization, patient has had multiple episodes requiring the use of physical and chemical restraints. He reported ongoing psychosocial stressors in regards to his that would lead to him acting out and threatening staff. Eventually the patient became more redirectable as his alverto subsided. Throughout the course of the hospitalization patient gradually improved with regards to mood stabilization and sleep and became future oriented with improved insight and judgment. On the day of discharge patient denied any suicidal or homicidal ideations intent or plan denied any auditory or visual hallucinations. Patient endorsed wanting to live for his health, family, and business. The patient denied any access to guns or weapons. Patient denied any paranoia and did not endorse any delusions. Patient does not have a significant history of substance abuse however was counseled on abstaining from all substances including alcohol and marijuana. Patient was also counseled on the medications and need for regular compliance and was encouraged to follow-up with their outpatient appointment for mental health and also for primary care. Patient received Invega Sustenna with the last loading dose being administered on day of discharge of 01/27/2020. Prior to discharge a family meeting will be arranged by psychiatric social worker to answer any ques tions and ensure safety upon discharge. During the hospital stay, patient has been evaluated for abdominal, kidney, and back pain. Diagnostic lab work and imaging revealed no signs of any acute or chronic process. On day of discharge, patient is expressing that his pain is significantly better. Mental status exam: General Appearance: Patient appears to be stated age is alert, pleasant, and fruit coordinator perative. Patient is in no acute distress and has fair hygiene and grooming Behavior: Patient is calmly seated without any agitated behavior. Speech: Patient's speech is fluent and nonpressured. Mood/Affect: Patient reports their mood is "much better", affect is congruent and euthymic. Suicidality/Homicidality: Patient denies having any suicidal or homicidal ideation intent or plan. Perceptions: Patient denies any auditory or visual hallucinations. Though content/process: There is no evidence of any delusional thought content and thought process is linear and goal-directed. more future oriented Memory and concentration: AOX3, grossly intact for the purposes of this session. Can spell "WORLD" backwards correctly. Judgment and insight: Improved with guarded prognosis Impression: Bipolar disorder, type I Tobacco use disorder Plan: -Continue with discharge today as patient has improved and stabilized psychiatrically and is not currently an imminent threat to himself and/or others . Patient will remain at chronically elevated risk for harm to self and/or others due to his impulsivity and history of nonadherence with treatment. -Continue medications: Invega Sustenna 156 mg IM given today (01/27/2020) to complete his loading dose. The next Depo to be given in 28 days. Depakote XR 1500 mg by mouth daily at bedtime for mood stabilization Hartley 300 mg by mouth twice a day for mood stabilization -Recommend close monitoring of Depakote and lithium levels to be performed by his outpatient psychiatrist. -Patient was counseled on the need for medication compliance and appropriate follow-up at mental health and also primary care for medical issues. Patient verbalized understanding and agreed. -Social work to arrange for and conduct family meeting to ensure safety upon dis charge and answer any questions/concerns. Social work also to arrange for patients follow up appointments with [facility] for psychiatric care along with follow up with primary care provider. -Patient counseled on abstaining from recreational drugs and marijuana and alcohol. Was informed/educated on the adverse effects on their physical and mental health. Patient verbally agreed and understood. -Patient was instructed to return to the hospital or seek immediate medical care if their psychiatric or medical symptoms do worsen or reoccur. -Psychoeducation and supportive therapy provided to patient. Risks and benefits of pharmacological treatment versus the risks and benefits of nontreatment weight and discussed. Informed consent discussion held. Common side effects of psychotropics discussed such as, but not limited to headache, GI disturbance, sexual dysfunction, movement disorders, sedation, and orthostatic hypotension. Life threatening and blackbox warnings of prescribed medications also discussed. Potential risks of operating a vehicle or heavy machinery discussed with patient at length. Advised on importance of compliance and a reliable and responsible manner. Patient advised to review FDA consumer labeling of all medications prior to taking. Patient verbalized understanding of potential risks, and agrees with current treatment plan. Patient advised to medically contact physician/emergency personnel if any acute changes in condition occur. Vital Signs Temp 98.1 F 01/27/20 06:25 Pulse 119 H 01/27/20 06:25 Resp 16 01/27/20 06:25 BP 131/79 01/27/20 06:25 Pulse Ox 99 01/27/20 06:25 Laboratory Results WBC 8.6 k/uL (3.8-10.6) 01/22/20 08:42 RBC 5.14 m/uL (4.30-5.90) 01/22/20 08:42 Hgb 15.3 gm/dL (13.0-17.5) 01/22/20 08:42 Hct 46.1 % (39.0-53.0) 01/22/20 08:42 MCV 89.8 fL (80.0-100.0) 01/22/20 08:42 MCH 29.8 pg (25.0-35.0) 01/22/20 08:42 MCHC 33.2 g/dL (31.0-37.0) 01/22/20 08:42 RDW 13.2 % (11.5-15.5) 01/22/20 08:42 Plt Count 247 k/uL (150-450) 01/22/20 08:42 Neutrophils % 54 % 01/22/20 08:42 Lymphocytes % 34 % 01/22/20 08:42 Monocytes % 6 % 01/22/20 08:42 Eosinophils % 3 % 01/22/20 08:42 Basophils % 1 % 01/22/20 08:42 Neutrophils # 4.7 k/uL (1.3-7.7) 01/22/20 08:42 Lymphocytes # 3.0 k/uL (1.0-4.8) 01/22/20 08:42 Monocytes # 0.5 k/uL (0-1.0) 01/22/20 08:42 Eosinophils # 0.3 k/uL (0-0.7) 01/22/20 08:42 Basophils # 0.1 k/uL (0-0.2) 01/22/20 08:42 Sodium 137 mmol/L (137-145) 01/25/20 08:23 Potassium 4.4 mmol/L (3.5-5.1) 01/25/20 08:23 Chloride 103 mmol/L (98-107) 01/25/20 08:23 Carbon Dioxide 24 mmol/L (22-30) 01/25/20 08:23 Anion Gap 10 mmol/L 01/25/20 08:23 BUN 9 mg/dL (9-20) 01/25/20 08:23 Creatinine 0.73 mg/dL (0.66-1.25) 01/25/20 08:23 Est GFR (CKD-EPI)AfAm >90 (>60 ml/min/1.73 sqM) 01/25/20 08:23 Est GFR (CKD-EPI)NonAf >90 (>60 ml/min/1.73 sqM) 01/25/20 08:23 Glucose 141 mg/dL (74-99) H 01/25/20 08:[address] Glu mg/dL 108 01/22/20 08:42 Hemoglobin A1c 5.4 % (4.0-6.0) 01/22/20 08:42 Calcium 9.9 mg/dL (8.4-10.2) 01/25/20 08:23 Total Bilirubin 1.2 mg/dL (0.2-1.3) 01/25/20 08:23 Conjugated Bilirubin 0.0 mg/dL (0.0-0.3) 01/22/20 08:42 Unconjugated Bilirubin 0.9 mg/dL (0.0-1.1) 01/22/20 08:42 Delta Bilirubin 0.2 mg/dL (0.0-0.2) 01/22/20 08:42 AST 39 U/L (17-59) 01/25/20 08:23 ALT 59 U/L (4-49) H 01/25/20 08:23 Alkaline Phosphatase 69 U/L (38-126) 01/25/20 08:23 Total Protein 7.9 g/dL (6.3-8.2) 01/25/20 08:23 Albumin 4.7 g/dL (3.5-5.0) 01/25/20 08:23 Triglycerides 73 mg/dL (<150) 01/22/20 08:42 Cholesterol 179 mg/dL (<200) 01/22/20 08:42 LDL Cholesterol, Calc 116 mg/dL (0-99) H 01/22/20 08:42 HDL Cholesterol 48 mg/dL (40-60) 01/22/20 08:42 TSH 2.550 mIU/L (0.465-4.680) 01/22/20 08:42 Urine Color Light Yellow 01/25/20 12:25 Urine Appearance Clear (Clear) 01/25/20 12:25 Urine pH 6.5 (5.0-8.0) 01/25/20 12:25 Ur Specific [place] 1.006 (1.001-1.035) 01/25/20 12:25 Urine Protein Negative (Negative) 01/25/20 12:25 Urine Glucose (UA) Negative (Negative) 01/25/20 12:25 Urine Ketones Trace (Negative) H 01/25/20 12:25 Urine Blood Negative (Negative) 01/25/20 12:25 Urine Nitrite Negative (Negative) 01/25/20 12:25 Urine Bilirubin Negative (Negative) 01/25/20 12:25 Urine Urobilinogen <2.0 mg/dL (<2.0) 01/25/20 12:25 Ur Leukocyte Esterase Negative (Negative) 01/25/20 12:25 Urine Opiates Screen Negative ng/mL (Negative) 01/21/20 06:25 Urine Methadone Screen Negative ng/mL (Negative) 01/21/20 06:25 Ur Propoxyphene Screen Negative ng/mL (Negative) 01/21/20 06:25 Urine Barbiturates Negative ng/mL (Negative) 01/21/20 06:25 Valproic Acid <10.0 ug/mL 01/22/20 08:42 Ur Phencyclidine Scrn Negative ng/mL (Negative) 01/21/20 06:25 Ur Amphetamine Screen Negative ng/mL (Negative) 01/21/20 06:25 U Benzodiazepines Scrn Negative ng/mL (Negative) 01/21/20 06:25 Hartley 0.3 mmol/L 01/25/20 08:23 Urine Cocaine Screen Negative ng/mL (Negative) 01/21/20 06:25 U Cannabinoids Screen Negative ng/mL (Negative) 01/21/20 06:25 Urine Alcohol Negative mg/dL (Negative) 01/21/20 06:25 Allergies Allergy/AdvReac Type Severity Reaction Status Date / Time No Known Allergies Allergy Verified 01/21/20 01:30 Patient Condition at Discharge: Stable Plan - Discharge Summary Discharge Rx Participant: Yes New Discharge Prescriptions: New RX: Divalproex ER [Depakote ER] 1,500 mg PO HS 30 Days tab.er.24h RX: Nicotine 21Mg/24Hr Patch [Habitrol] 1 patch TRANSDERM DAILY 30 Days patch RX: Hartley Carbonate 300 mg PO BID 30 Days cap RX: hydrOXYzine pamoate [Vistaril] 50 mg PO TID PRN 30 Days cap PRN Reason: Agitation Or Acute Anxiety Changed RX: Paliperidone IM [Invega Sustenna] 156 mg IM ONCE 28 Days #1 syringe Discontinued RX: Divalproex ER [Depakote ER] 1,000 mg PO HS RX: Divalproex ER [Depakote ER] 500 mg PO DAILY RX: Nicotine Polacrilex [Nicorette] 2 mg BUCCAL Q2HR PRN 30 Days #120 gum PRN Reason: Nicotine Cravings RX: Cyclobenzaprine [Flexeril] 10 mg PO Q8H PRN 30 Days #90 tab PRN Reason: Muscle Spasm Discharge Medication List RX: Divalproex ER [Depakote ER] 1,500 mg PO HS 30 Days tab.er.24h 01/27/20 [Rx] RX: Hartley Carbonate 300 mg PO BID 30 Days cap 01/27/20 [Rx] RX: Nicotine 21Mg/24Hr Patch [Habitrol] 1 patch TRANSDERM DAILY 30 Days patch 01/27/20 [Rx] RX: Paliperidone IM [Invega Sustenna] 156 mg IM ONCE 28 Days #1 syringe 01/27/20 [Rx] RX: hydrOXYzine pamoate [Vistaril] 50 mg PO TID PRN 30 Days cap 01/27/20 [Rx] Follow up Appointment(s)/Referral(s): [facility] [Outside] - 01/28/20 12:30 pm (w/Mary by phone) [facility] [NON-STAFF] - 1 Week Patient Instructions/Handouts: How to Stop Smoking (DC), Bipolar Disorder (DC) Activity/Diet/Wound Care/Special Instructions: Activity and diet as tolerated. Avoid the use of street drugs and alcohol. Take all medications as prescribed. When you are in need of refills on your me dications please contact your medical provider and/or outpatient psychiatrist to have this done. Please go to scheduled outpatient appointment for aftercare treatment. If symptoms return or become worse, call the crisis line at and/or go to the nearest emergency room for evaluation. Discharge Disposition: HOME SELF-CARE
[2020-01-27] MEDS ORDERED: DIVALPROEX ER 500 MG TAB.ER.24H PO SCH (21:00)
== END 2020-01-27 12:13 | disposition home or self-care (01) | DRG 885 ==
LOC: EC 01:23 → 3MHU 05:58
PROVIDERS: ADMIT Psychiatry & Neurology Psychiatry; ATTEND Psychiatry & Neurology Psychiatry
DX: F31.2 Bipolar disorder, current episode manic severe with psychotic features (principal); R45.850 Homicidal ideations; Z78.1 Physical restraint status; R45.87 Impulsiveness; M54.5 Low back pain; M79.669 Pain in unspecified lower leg; R10.9 Unspecified abdominal pain; E66.9 Obesity, unspecified; Z68.33 Body mass index [BMI] 33.0-33.9, adult; Z72.0 Tobacco use; Z71.6 Tobacco abuse counseling; Z79.899 Other long term (current) drug therapy
CPT/HCPCS: 74018; 74176; 80053; 80061; 80164; 80165; 80178; 80306; 81003; 82075; 82248; 83036; 84443; 85025; 96372; 99285

== ENCOUNTER 2020-02-13 05:44 | Emergency (ER) | payer OTHER ==
[2020-02-13 05:50] VITALS: RESP 18
[2020-02-13] MEDS ORDERED: SODIUM CHLORIDE 0.9% 1,000 ML IV STA (05:50)
--- NOTE | 2020-02-13 05:52 | ED ---
Arrhythmia/Palpitations HPI - General Chief Complaint: Arrhythmia/Palpitations Stated Complaint: Chest pain Time Seen by Provider: 02/13/20 05:50 Source: patient, RN notes reviewed, old records reviewed Mode of arrival: EMS Limitations: no limitations - History of Present Illness Initial Comments: this is a [age]-year-old male [facility] regarding elevated heart rate palpitations after his coffee this morning. Patient presented to PD, PD called EMS and patient presents to ER after calling 911. Patient states he needs a safe place to go MD Complaint: rapid heart beat, "heart racing", palpitations, irregular heart beat -: hour(s) Context: occurred during rest, awoke with symptoms Associated Symptoms: denies other symptoms, anxiety - Related Data Home Medications Medication Instructions Recorded Confirmed diphenhydrAMINE [Benadryl] 25 mg PO HS PRN 02/16/20 02/16/20 Previous Rx's Medication Instructions Recorded Divalproex ER [Depakote ER] 1,500 mg PO HS 30 Days tab.er.24h 01/27/20 [place] Carbonate 300 mg PO BID 30 Days cap 01/27/20 Nicotine 21Mg/24Hr Patch [Habitrol] 1 patch TRANSDERM DAILY 30 Days 01/27/20 patch Paliperidone IM [Invega Sustenna] 156 mg IM ONCE 28 Days #1 syringe 01/27/20 hydrOXYzine pamoate [Vistaril] 50 mg PO TID PRN 30 Days cap 01/27/20 Allergies Allergy/AdvReac Type Severity Reaction Status Date / Time No Known Allergies Allergy Verified 02/16/20 12:20 Review of Systems ROS Statement: Those systems with pertinent positive or pertinent negative responses have been documented in the HPI. ROS Other: All systems not noted in ROS Statement are negative. Past Medical History Past Medical History: No Reported History History of Any Multi-Drug Resistant Organisms: None Reported Past Surgical History: No Surgical Hx Reported Past Psychological History: Bipolar Smoking Status: Current every day smoker Past Alcohol Use History: Occasional Past Drug Use History: None Reported General Exam Limitations: no limitations General appearance: alert, in no apparent distress, anxious Head exam: Present: atraumatic, normocephalic, normal inspection Eye exam: Present: normal appearance, PERRL, EOMI. Absent: scleral icterus, conjunctival injection, periorbital swelling ENT exam: Present: normal exam, mucous membranes moist Neck exam: Present: normal inspection. Absent: tenderness, meningismus, lymphadenopathy Respiratory exam: Present: normal lung sounds bilaterally. Absent: respiratory distress, wheezes, rales, rhonchi, stridor Cardiovascular Exam: Present: regular rate, normal rhythm, normal heart sounds. Absent: systolic murmur, diastolic murmur, rubs, gallop, clicks GI/Abdominal exam: Present: soft, normal bowel sounds. Absent: distended, tenderness, guarding, rebound, rigid Extremities exam: Present: normal inspection, full ROM, normal capillary refill. Absent: tenderness, pedal edema, joint swelling, calf tenderness Back exam: Present: normal inspection Neurological exam: Present: alert, oriented X3, CN II-XII intact Psychiatric exam: Present: normal affect, normal mood Skin exam: Present: warm, dry, intact, normal color. Absent: rash Course Vital Signs 02/13/20 02/13/20 05:47 07:13 Temperature 97.8 F 98 F Pulse Rate 97 74 Respiratory 18 18 Rate Blood Pressure 145/91 132/70 O2 Sat by Pulse 99 98 Oximetry - Reevaluation(s) Reevaluation #1: 02/13/20 06:05 medical records reviewed patient has improvement in resolution of symptoms here in the ER Reevaluation #2: poke patient regarding findings and results, questions answered Patient currently symptomatic EKG Findings - EKG Comments: EKG Findings:: EKG is sinus rhythm 93 TX 148 QRS 92 QTC 4:30 Medical Decision Making - Medical Decision Making 34 male DF for evaluation tachycardia anxiety, patient has no complaints here in the ER patient was concerned that something may be going on, but this time feels well, patient will be discharged home - Lab Data Result diagrams: 02/13/20 05:54 02/13/20 05:54 Lab Results 02/13/20 02/13/20 02/13/20 Range/Units 05:54 05:54 05:54 WBC 9.3 (3.8-10.6) k/uL RBC 5.10 (4.30-5.90) m/uL Hgb 15.0 (13.0-17.5) gm/dL Hct 47.0 (39.0-53.0) % MCV 92.1 (80.0-100.0) fL MCH 29.3 (25.0-35.0) pg MCHC 31.8 (31.0-37.0) g/dL RDW 13.2 (11.5-15.5) % Plt Count 305 (150-450) k/uL Neutrophils % 68 % Lymphocytes % 23 % Monocytes % 5 % Eosinophils % 3 % Basophils % 1 % Neutrophils # 6.3 (1.3-7.7) k/uL Lymphocytes # 2.1 (1.0-4.8) k/uL Monocytes # 0.5 (0-1.0) k/uL Eosinophils # 0.2 (0-0.7) k/uL Basophils # 0.1 (0-0.2) k/uL PT 9.8 (9.0-12.0) sec INR 0.9 (<1.2) APTT 25.2 (22.0-30.0) sec D-Dimer 0.35 (<0.60) mg/L FEU Sodium (137-145) mmol/L Potassium (3.5-5.1) mmol/L Chloride (98-107) mmol/L Carbon Dioxide (22-30) mmol/L Anion Gap mmol/L BUN (9-20) mg/dL Creatinine (0.66-1.25) mg/dL Est GFR (CKD-EPI)AfAm (>60 ml/min/1.73 sqM) Est GFR (CKD-EPI)NonAf (>60 ml/min/1.73 sqM) Glucose (74-99) mg/dL Calcium (8.4-10.2) mg/dL Phosphorus (2.5-4.5) mg/dL Magnesium (1.6-2.3) mg/dL Total Bilirubin (0.2-1.3) mg/dL AST (17-59) U/L ALT (4-49) U/L Alkaline Phosphatase (38-126) U/L Creatine Kinase (55-170) U/L Troponin I (0.000-0.034) ng/mL NT-Pro-B Natriuret Pep pg/mL Total Protein (6.3-8.2) g/dL Albumin (3.5-5.0) g/dL TSH (0.465-4.680) mIU/L Urine Color Light Yellow Urine Appearance Clear (Clear) Urine pH 5.5 (5.0-8.0) Ur Specific [place] 1.009 (1.001-1.035) Urine Protein Negative (Negative) Urine Glucose (UA) Negative (Negative) Urine Ketones Negative (Negative) Urine Blood Negative (Negative) Urine Nitrite Negative (Negative) Urine Bilirubin Negative (Negative) Urine Urobilinogen <2.0 (<2.0) mg/dL Ur Leukocyte Esterase Negative (Negative) Electra mmol/L 02/13/20 02/13/20 02/13/20 Range/Units 05:54 05:54 05:54 WBC (3.8-10.6) k/uL RBC (4.30-5.90) m/uL Hgb (13.0-17.5) gm/dL Hct (39.0-53.0) % MCV (80.0-100.0) fL MCH (25.0-35.0) pg MCHC (31.0-37.0) g/dL RDW (11.5-15.5) % Plt Count (150-450) k/uL Neutrophils % % Lymphocytes % % Monocytes % % Eosinophils % % Basophils % % Neutrophils # (1.3-7.7) k/uL Lymphocytes # (1.0-4.8) k/uL Monocytes # (0-1.0) k/uL Eosinophils # (0-0.7) k/uL Basophils # (0-0.2) k/uL PT (9.0-12.0) sec INR (<1.2) APTT (22.0-30.0) sec D-Dimer (<0.60) mg/L FEU Sodium 140 (137-145) mmol/L Potassium 3.9 (3.5-5.1) mmol/L Chloride 107 (98-107) mmol/L Carbon Dioxide 28 (22-30) mmol/L Anion Gap 5 mmol/L BUN 11 (9-20) mg/dL Creatinine 0.79 (0.66-1.25) mg/dL Est GFR (CKD-EPI)AfAm >90 (>60 ml/min/1.73 sqM) Est GFR (CKD-EPI)NonAf >90 (>60 ml/min/1.73 sqM) Glucose 108 H (74-99) mg/dL Calcium 9.5 (8.4-10.2) mg/dL Phosphorus 3.3 (2.5-4.5) mg/dL Magnesium 2.0 (1.6-2.3) mg/dL Total Bilirubin 0.7 (0.2-1.3) mg/dL AST 36 (17-59) U/L ALT 78 H (4-49) U/L Alkaline Phosphatase 70 (38-126) U/L Creatine Kinase 498 H (55-170) U/L Troponin I <0.012 (0.000-0.034) ng/mL NT-Pro-B Natriuret Pep 29 pg/mL Total Protein 7.3 (6.3-8.2) g/dL Albumin 4.4 (3.5-5.0) g/dL TSH 1.090 (0.465-4.680) mIU/L Urine Color Urine Appearance (Clear) Urine pH (5.0-8.0) Ur Specific [place] (1.001-1.035) Urine Protein (Negative) Urine Glucose (UA) (Negative) Urine Ketones (Negative) Urine Blood (Negative) Urine Nitrite (Negative) Urine Bilirubin (Negative) Urine Urobilinogen (<2.0) mg/dL Ur Leukocyte Esterase (Negative) Electra mmol/L 02/13/20 Range/Units 05:54 WBC (3.8-10.6) k/uL RBC (4.30-5.90) m/uL Hgb (13.0-17.5) gm/dL Hct (39.0-53.0) % MCV (80.0-100.0) fL MCH (25.0-35.0) pg MCHC (31.0-37.0) g/dL RDW (11.5-15.5) % Plt Count (150-450) k/uL Neutrophils % % Lymphocytes % % Monocytes % % Eosinophils % % Basophils % % Neutrophils # (1.3-7.7) k/uL Lymphocytes # (1.0-4.8) k/uL Monocytes # (0-1.0) k/uL Eosinophils # (0-0.7) k/uL Basophils # (0-0.2) k/uL PT (9.0-12.0) sec INR (<1.2) APTT (22.0-30.0) sec D-Dimer (<0.60) mg/L FEU Sodium (137-145) mmol/L Potassium (3.5-5.1) mmol/L Chloride (98-107) mmol/L Carbon Dioxide (22-30) mmol/L Anion Gap mmol/L BUN (9-20) mg/dL Creatinine (0.66-1.25) mg/dL Est GFR (CKD-EPI)AfAm (>60 ml/min/1.73 sqM) Est GFR (CKD-EPI)NonAf (>60 ml/min/1.73 sqM) Glucose (74-99) mg/dL Calcium (8.4-10.2) mg/dL Phosphorus (2.5-4.5) mg/dL Magnesium (1.6-2.3) mg/dL Total Bilirubin (0.2-1.3) mg/dL AST (17-59) U/L ALT (4-49) U/L Alkaline Phosphatase (38-126) U/L Creatine Kinase (55-170) U/L Troponin I (0.000-0.034) ng/mL NT-Pro-B Natriuret Pep pg/mL Total Protein (6.3-8.2) g/dL Albumin (3.5-5.0) g/dL TSH (0.465-4.680) mIU/L Urine Color Urine Appearance (Clear) Urine pH (5.0-8.0) Ur Specific [place] (1.001-1.035) Urine Protein (Negative) Urine Glucose (UA) (Negative) Urine Ketones (Negative) Urine Blood (Negative) Urine Nitrite (Negative) Urine Bilirubin (Negative) Urine Urobilinogen (<2.0) mg/dL Ur Leukocyte Esterase (Negative) Electra <0.2 mmol/L Disposition Clinical Impression: Tachycardia, Bipolar disorder, Acute psychosis Disposition: HOME SELF-CARE Condition: Good Instructions (If sedation given, give patient instructions): Heart Palpitations (ED) Is patient prescribed a controlled substance at d/c from ED?: No Referrals: Jolly Camara MD [Primary Care Provider] - 1-2 days
[2020-02-13] MEDS ORDERED: LITHIUM CARBONATE 300 MG CAP PO STA (05:56)
[2020-02-13 06:04] LABS: Basophils # (A) 0.1 k/uL (0-0.2); Basophils % (A) 1 %; Eosinophils # (A) 0.2 k/uL (0-0.7); Eosinophils % (A) 3 %; Lymphocytes # (A) 2.1 k/uL (1.0-4.8); Lymphocytes % (A) 23 %; MCH 29.3 pg (25.0-35.0); MCHC 31.8 g/dL (31.0-37.0); MCV 92.1 fL (80.0-100.0); Mean Platelet Volume 6.6; Monocytes # (A) 0.5 k/uL (0-1.0); Monocytes % (A) 5 %; Neutrophils # (A) 6.3 k/uL (1.3-7.7); Neutrophils % (A) 68 %; Platelet Count 305 k/uL (150-450); RDW 13.2 % (11.5-15.5); WBC 9.3 k/uL (3.8-10.6)
[2020-02-13 06:14] LABS: ALT 78 U/L (4-49); AST 36 U/L (17-59); African American GFR (CKD) >90 (>60 ml/min/1.73 sqM); Albumin 4.4 g/dL (3.5-5.0); Alkaline Phosphatase 70 U/L (38-126); Anion Gap 5 mmol/L; Blood Urea Nitrogen 11 mg/dL (9-20); Calcium 9.5 mg/dL (8.4-10.2); Carbon Dioxide 28 mmol/L (22-30); Chloride 107 mmol/L (98-107); Creatine Kinase 498 U/L (55-170); Glucose 108 mg/dL (74-99); Non-African American GFR(CKD) >90 (>60 ml/min/1.73 sqM); Phosphorus 3.3 mg/dL (2.5-4.5); Potassium 3.9 mmol/L (3.5-5.1); Sodium 140 mmol/L (137-145); Total Bilirubin 0.7 mg/dL (0.2-1.3); Total Protein 7.3 g/dL (6.3-8.2)
[2020-02-13 06:19] LABS: D-Dimer 0.35 mg/L FEU (<0.60); INR 0.9 (<1.2); Partial Thromboplastin Time 25.2 sec (22.0-30.0); Prothrombin Time 9.8 sec (9.0-12.0)
[2020-02-13 07:07] LABS: Appearance,Urine Clear (Clear); Bilirubin,Urine Negative (Negative); Blood,Urine Negative (Negative); Color,Urine Light Yellow; Glucose,Urine (UA) Negative (Negative); Ketones,Urine Negative (Negative); Leukocyte Esterase,Urine Negative (Negative); Nitrite,Urine Negative (Negative); PH, Urine 5.5 (5.0-8.0); Protein,Urine Negative (Negative); Specific Gravity,Urine 1.009 (1.001-1.035); Urobilinogen,Urine <2.0 mg/dL (<2.0)
[2020-02-13 07:14] VITALS: BP 132/70; PULSE 74; TEMP 98
== END 2020-02-13 07:13 | disposition home or self-care (01) ==
LOC: EC 05:44
DX: R00.0 Tachycardia, unspecified (principal); F23 Brief psychotic disorder; F31.9 Bipolar disorder, unspecified; F17.200 Nicotine dependence, unspecified, uncomplicated
CPT/HCPCS: 36415; 80053; 80178; 81003; 82550; 83735; 83880; 84100; 84443; 84484; 85025; 85379; 85610; 85730; 93005; 96360; 99285

== ENCOUNTER 2020-02-16 10:59 | Inpatient (IN) | payer MEDICAID, OTHER ==
--- NOTE | 2020-02-16 11:42 | ED ---
Psych HPI - General Chief Complaint: Psychiatric Symptoms Stated Complaint: Mental Health Time Seen by Provider: 02/16/20 11:07 Source: patient, EMS, RN notes reviewed Mode of arrival: EMS Limitations: no limitations - History of Present Illness Initial Comments: This a 34-year-old male presents emergency Department with chief complaint of needs psychiatric help. Patient states he was not safe at home with his . Patient denies being suicidal or homicidal. [facility] is a [facility] to [facility]. Patient has a long history of psychiatric issues. Patient denies any current illicit drug use or alcohol abuse. Offers no physical complaints. Patient is requesting something to use drink. - Related Data Home Medications Medication Instructions Recorded Confirmed diphenhydrAMINE [Benadryl] 25 mg PO HS PRN 02/16/20 02/16/20 Previous Rx's Medication Instructions Recorded Divalproex ER [Depakote ER] 1,500 mg PO HS 30 Days tab.er.24h 01/27/20 [place] Carbonate 300 mg PO BID 30 Days cap 01/27/20 Nicotine 21Mg/24Hr Patch [Habitrol] 1 patch TRANSDERM DAILY 30 Days 01/27/20 patch Paliperidone IM [Invega Sustenna] 156 mg IM ONCE 28 Days #1 syringe 01/27/20 hydrOXYzine pamoate [Vistaril] 50 mg PO TID PRN 30 Days cap 01/27/20 Allergies Allergy/AdvReac Type Severity Reaction Status Date / Time No Known Allergies Allergy Verified 02/16/20 12:20 Review of Systems ROS Statement: Those systems with pertinent positive or pertinent negative responses have been documented in the HPI. ROS Other: All systems not noted in ROS Statement are negative. Past Medical History Past Medical History: No Reported History History of Any Multi-Drug Resistant Organisms: None Reported Past Surgical History: No Surgical Hx Reported Past Psychological History: Bipolar Smoking Status: Current every day smoker Past Alcohol Use History: Occasional Past Drug Use History: None Reported General Exam General appearance: alert, in no apparent distress Head exam: Present: atraumatic, normocephalic, normal inspection Eye exam: Present: normal appearance, PERRL, EOMI. Absent: scleral icterus, conjunctival injection, periorbital swelling ENT exam: Present: normal exam, normal oropharynx, mucous membranes moist Neck exam: Present: normal inspection, full ROM. Absent: tenderness, meningismus, lymphadenopathy Respiratory exam: Present: normal lung sounds bilaterally. Absent: respiratory distress, wheezes, rales, rhonchi, stridor Cardiovascular Exam: Present: regular rate, normal rhythm, normal heart sounds. Absent: systolic murmur, diastolic murmur, rubs, gallop, clicks Neurological exam: Present: alert, oriented X3 Psychiatric exam: Present: anxious Skin exam: Present: warm, dry, intact, normal color. Absent: rash Course Vital Signs 02/16/20 11:09 Temperature 98.5 F Pulse Rate 85 Respiratory 16 Rate Blood Pressure 154/86 O2 Sat by Pulse 100 Oximetry Medical Decision Making - Lab Data Lab Results 02/16/20 Range/Units 11:27 Urine Opiates Screen Not Detected (NotDetected) Ur Oxycodone Screen Not Detected (NotDetected) Urine Methadone Screen Not Detected (NotDetected) Ur Propoxyphene Screen Not Detected (NotDetected) Ur Barbiturates Screen Not Detected (NotDetected) U Tricyclic Antidepress Not Detected (NotDetected) Ur Phencyclidine Scrn Not Detected (NotDetected) Ur Amphetamines Screen Not Detected (NotDetected) U Methamphetamines Scrn Not Detected (NotDetected) U Benzodiazepines Scrn Not Detected (NotDetected) Urine Cocaine Screen Not Detected (NotDetected) U Marijuana (THC) Screen Not Detected (NotDetected) Disposition Clinical Impression: Bipolar disorder, Acute psychosis Disposition: TRANSFER TO PSYCH HOSP/UNIT
[2020-02-16 11:56] LABS: Amphetamine Screen,Urine Not Detected (NotDetected); Barbiturate Screen,Urine Not Detected (NotDetected); Benzodiazepines Screen,Urine Not Detected (NotDetected); Cocaine Screen,Urine Not Detected (NotDetected); Methadone Screen, Urine Not Detected (NotDetected); Opiate Screen,Urine Not Detected (NotDetected); Oxycodone Screen, Urine Not Detected (NotDetected); Phencyclidine Screen,Urine Not Detected (NotDetected); Tricyclic Antidepressant,Urine Not Detected (NotDetected); Urn Cannabinoid Scrn Not Detected (NotDetected)
[2020-02-16] MEDS: LORazepam 1 MG TAB PO STA ×2 (16:12→21:54)
[2020-02-16] MEDS ORDERED: MAGNESIUM HYDROXIDE 2,400 MG/10 ML CUP PO PRN (16:23)
[2020-02-16] MEDS ORDERED: MAG HYDROX/AL HYDROX/SIMETH 30 ML CUP PO PRN (16:23)
[2020-02-16] MEDS ORDERED: flUPHENAZine 2.5 MG/ML (MDV) 10 ML VIAL IM PRN (16:35)
[2020-02-16] MEDS ORDERED: diphenhydrAMINE 50 MG/ML 1 ML VIAL IM PRN (16:37)
[2020-02-16] MEDS: LITHIUM CARBONATE 300 MG CAP PO SCH (21:54)
[2020-02-16] MEDS: DIVALPROEX ER 500 MG TAB.ER.24H PO SCH (21:54)
[2020-02-16] MEDS: NICOTINE 21MG/24HR PATCH TRANSDERM SCH (21:56)
--- NOTE | 2020-02-17 03:57 | P.CONS ---
History of Present Illness - Reason for Consult Consult date: 02/17/20 - History of Present Illness Patient is a 34-year-old male with a PMH of bipolar disorder who came to emergency room due to bizarre behavior. The patient was seen in the mental health unit. History was limited as the patient had severe flight of ideas and tangentiality with grandiose delusions. The patient however denied any illicit drug abuse or alcohol abuse. He also denied any additional complaints. He denied chest pain, shortness of breath, fever, chills, nausea, vomiting, cough, abdominal pain, or diarrhea. Review of Systems Pertinent positives and negatives as discussed in HPI, a complete review of systems was performed and all other systems are negative. Past Medical History Past Medical History: No Reported History History of Any Multi-Drug Resistant Organisms: None Reported Past Surgical History: No Surgical Hx Reported Past Psychological History: Bipolar Smoking Status: Current every day smoker Past Alcohol Use History: Occasional Past Drug Use History: None Reported Medications and Allergies Home Medications Medication Instructions Recorded Confirmed Type Divalproex ER [Depakote ER] 1,500 mg PO HS 30 Days tab.er.24h 01/27/20 02/16/20 Rx [place] Carbonate 300 mg PO BID 30 Days cap 01/27/20 02/16/20 Rx Nicotine 21Mg/24Hr Patch [Habitrol] 1 patch TRANSDERM DAILY 30 Days 01/27/20 02/16/20 Rx patch Paliperidone IM [Invega Sustenna] 156 mg IM ONCE 28 Days #1 syringe 01/27/20 02/16/20 Rx hydrOXYzine pamoate [Vistaril] 50 mg PO TID PRN 30 Days cap 01/27/20 02/16/20 Rx diphenhydrAMINE [Benadryl] 25 mg PO HS PRN 02/16/20 02/16/20 History Allergies Allergy/AdvReac Type Severity Reaction Status Date / Time No Known Allergies Allergy Verified 02/16/20 12:20 Physical Exam Vitals: Vital Signs Temp Pulse Pulse Resp BP BP Pulse Ox 02/16/20 16:35 98.4 F 86 18 132/85 99 02/16/20 11:09 98.5 F 85 16 154/86 100 Intake and Output 02/16/20 02/16/20 02/17/20 14:59 22:59 06:59 Other: Weight 120.656 kg 118.2 kg General: non toxic, no distress, appears at stated age, obese Derm: no unusual rashes/lesions no unusual ecchymoses, warm, dry Head: atraumatic, normocephalic, symmetric Eyes: EOMI, no lid lag, anicteric sclera, pupils equal round reactive to light ENT: Nose and ears atraumatic, no thrush, no pharyngeal erythema Neck: No thyromegaly, no cervical lymphadenopathy, trachea midline, supple Mouth: no lip lesion, mucus membranes moist Cardiovascular: S1S2 reg, no murmur, positive posterior tibial pulse bilateral, no edema, capillary refill less than 2 seconds Lungs: CTA bilateral, no rhonchi, no rales , no accessory muscle use Abdominal: soft, nontender to palpation, no guarding, no appreciable organomegaly, normal bowel sounds Ext: no gross muscle atrophy, muscle strength 5 out of 5 in all 4 extremities grossly, no contractures, Neuro: CN II-XI grossly intact, light touch intact all 4 extremities, finger to nose within normal limits, Psych: Alert, oriented, flight of ideas, grandiose delusions, tangentiality Assessment and Plan Plan: Psychosis versus manic episode -As per psychiatry Elevated BP -Monitor for now Thank you for allowing us to participate in the care of this patient. We will follow peripherally. Do not hesitate to contact us with questions. Someone can be reached from the [facility] hospitalist group at all hours of the day at [phone].
[2020-02-17 07:46] LABS: Basophils # (A) 0.1 k/uL (0-0.2); Basophils % (A) 1 %; Eosinophils # (A) 0.4 k/uL (0-0.7); Eosinophils % (A) 4 %; HCT 47.4 % (39.0-53.0); HGB 15.8 gm/dL (13.0-17.5); Lymphocytes # (A) 2.7 k/uL (1.0-4.8); Lymphocytes % (A) 32 %; MCH 30.8 pg (25.0-35.0); MCHC 33.3 g/dL (31.0-37.0); MCV 92.3 fL (80.0-100.0); Mean Platelet Volume 6.6; Monocytes # (A) 0.4 k/uL (0-1.0); Monocytes % (A) 5 %; Neutrophils # (A) 4.6 k/uL (1.3-7.7); Neutrophils % (A) 55 %; Platelet Count 253 k/uL (150-450); RBC 5.14 m/uL (4.30-5.90); RDW 12.6 % (11.5-15.5); WBC 8.3 k/uL (3.8-10.6)
[2020-02-17 07:56] LABS: ALT 44 U/L (4-49); AST 25 U/L (17-59); African American GFR (CKD) >90 (>60 ml/min/1.73 sqM); Albumin 4.3 g/dL (3.5-5.0); Alkaline Phosphatase 63 U/L (38-126); Anion Gap 5 mmol/L; Blood Urea Nitrogen 17 mg/dL (9-20); Calcium 9.7 mg/dL (8.4-10.2); Carbon Dioxide 24 mmol/L (22-30); Chloride 108 mmol/L (98-107); Cholesterol 191 mg/dL (<200); Glucose 108 mg/dL (74-99); HDL Cholesterol 45 mg/dL (40-60); LDL Cholesterol,Calculated 127 mg/dL (0-99); Non-African American GFR(CKD) >90 (>60 ml/min/1.73 sqM); Potassium 4.7 mmol/L (3.5-5.1); Sodium 137 mmol/L (137-145); Total Bilirubin 0.8 mg/dL (0.2-1.3); Total Protein 7.3 g/dL (6.3-8.2); Triglycerides 93 mg/dL (<150)
[2020-02-17] MEDS: NICOTINE 21MG/24HR PATCH TRANSDERM SCH (08:49)
[2020-02-17] MEDS: ACETAMINOPHEN TAB 325 MG TAB PO PRN ×3 (08:49→18:51)
[2020-02-17] MEDS: LITHIUM CARBONATE 300 MG CAP PO SCH ×2 (08:49→19:59)
[2020-02-17 10:04] LABS: Lithium 0.3 mmol/L
[2020-02-17 10:12] LABS: Valproic Acid (Depakene) 33.8 ug/mL
--- NOTE | 2020-02-17 12:44 | P.HP ---
Psychiatric H&P - . H&P Date: 02/17/20 History & Physical: Allergies Allergy/AdvReac Type Severity Reaction Status Date / Time No Known Allergies Allergy Verified 02/16/20 12:20 Vital Signs Temp 98.4 F 02/16/20 16:35 Pulse 86 02/16/20 16:35 Resp 18 02/16/20 16:35 BP 132/85 02/16/20 16:35 Pulse Ox 99 02/16/20 16:35 Intake & Output 02/16/20 02/17/20 02/17/20 18:59 06:59 18:59 Weight 118.2 kg Laboratory Last Values WBC 8.3 k/uL (3.8-10.6) 02/17/20 07:24 RBC 5.14 m/uL (4.30-5.90) 02/17/20 07:24 Hgb 15.8 gm/dL (13.0-17.5) 02/17/20 07:24 Hct 47.4 % (39.0-53.0) 02/17/20 07:24 MCV 92.3 fL (80.0-100.0) 02/17/20 07:24 MCH 30.8 pg (25.0-35.0) 02/17/20 07:24 MCHC 33.3 g/dL (31.0-37.0) 02/17/20 07:24 RDW 12.6 % (11.5-15.5) 02/17/20 07:24 Plt Count 253 k/uL (150-450) 02/17/20 07:24 Neutrophils % 55 % 02/17/20 07:24 Lymphocytes % 32 % 02/17/20 07:24 Monocytes % 5 % 02/17/20 07:24 Eosinophils % 4 % 02/17/20 07:24 Basophils % 1 % 02/17/20 07:24 Neutrophils # 4.6 k/uL (1.3-7.7) 02/17/20 07:24 Lymphocytes # 2.7 k/uL (1.0-4.8) 02/17/20 07:24 Monocytes # 0.4 k/uL (0-1.0) 02/17/20 07:24 Eosinophils # 0.4 k/uL (0-0.7) 02/17/20 07:24 Basophils # 0.1 k/uL (0-0.2) 02/17/20 07:24 Sodium 137 mmol/L (137-145) 02/17/20 07:24 Potassium 4.7 mmol/L (3.5-5.1) 02/17/20 07:24 Chloride 108 mmol/L (98-107) H 02/17/20 07:24 Carbon Dioxide 24 mmol/L (22-30) 02/17/20 07:24 Anion Gap 5 mmol/L 02/17/20 07:24 BUN 17 mg/dL (9-20) 02/17/20 07:24 Creatinine 0.80 mg/dL (0.66-1.25) 02/17/20 07:24 Est GFR (CKD-EPI)AfAm >90 (>60 ml/min/1.73 sqM) 02/17/20 07:24 Est GFR (CKD-EPI)NonAf >90 (>60 ml/min/1.73 sqM) 02/17/20 07:24 Glucose 108 mg/dL (74-99) H 02/17/20 07:24 Calcium 9.7 mg/dL (8.4-10.2) 02/17/20 07:24 Total Bilirubin 0.8 mg/dL (0.2-1.3) 02/17/20 07:24 AST 25 U/L (17-59) 02/17/20 07:24 ALT 44 U/L (4-49) 02/17/20 07:24 Alkaline Phosphatase 63 U/L (38-126) 02/17/20 07:24 Total Protein 7.3 g/dL (6.3-8.2) 02/17/20 07:24 Albumin 4.3 g/dL (3.5-5.0) 02/17/20 07:24 Triglycerides 93 mg/dL (<150) 02/17/20 07:24 Cholesterol 191 mg/dL (<200) 02/17/20 07:24 LDL Cholesterol, Calc 127 mg/dL (0-99) H 02/17/20 07:24 HDL Cholesterol 45 mg/dL (40-60) 02/17/20 07:24 TSH 1.060 mIU/L (0.465-4.680) 02/17/20 07:24 Urine Opiates Screen Not Detected (NotDetected) 02/16/20 11:27 Ur Oxycodone Screen Not Detected (NotDetected) 02/16/20 11:27 Urine Methadone Screen Not Detected (NotDetected) 02/16/20 11:27 Ur Propoxyphene Screen Not Detected (NotDetected) 02/16/20 11:27 Ur Barbiturates Screen Not Detected (NotDetected) 02/16/20 11:27 Valproic Acid 33.8 ug/mL 02/17/20 07:24 U Tricyclic Antidepress Not Detected (NotDetected) 02/16/20 11:27 Ur Phencyclidine Scrn Not Detected (NotDetected) 02/16/20 11:27 Ur Amphetamines Screen Not Detected (NotDetected) 02/16/20 11:27 U Methamphetamines Scrn Not Detected (NotDetected) 02/16/20 11:27 U Benzodiazepines Scrn Not Detected (NotDetected) 02/16/20 11:27 [place] 0.3 mmol/L 02/17/20 07:24 Urine Cocaine Screen Not Detected (NotDetected) 02/16/20 11:27 U Marijuana (THC) Screen Not Detected (NotDetected) 02/16/20 11:27 02/17/20 10:40 IDENTIFYING DATA: Patient is a 34-year-old male, currently living with his , with a significant history of bipolar disorder who was admitted for manic behavior. HPI: Patient presented to the hospital for a psychiatric evaluation and according to ER reports stating that he does not feel safe at home with his . Patient was recently discharged from the metabolic unit on 01/27/2020 on Invega Sustenna long-acting injection and also Depakote along with lithium. Patient had gone to his [facility] follow-up appointment and from there was brought to the hospital. Patient's UDS was negative for any drugs. Patient's Depakote level was 33.8 and also lithium level was 0.3. Patient claims that he has been getting into conflicts with his at home. Patient was religiously preoccupied and spoke about God at several different Bible versus. He claims that he is on a mission to "save this country". He repeatedly spoke about politics and believes that everybody in his life was a "Republican" and that they were conspiring against him and "destroying the country". He spoke repetitively about the current president. He believes that the pot pusher and also several employees in the hospital or Democrats as he does not like them. He states that his is a "Republican in disguise and pretending to be a green party". He claims that he has not been taking his Depakote because "I don't trust it". He states that lithium is the only medication that he trusts at this time. Patient is displaying poor insight and judgment. Patient was rambling is grossly delusional and illogical. Patient denied any irritability. He states that his sleep was better in the hospital for poor at home. He spoke about "spiritual warfare going on right now" and also spoke about his eeubbs-so-dln being invo lved in the "[employer]". At this time patient denies any suicidal or homicidal ideations intent or plan and denies any auditory or visual hallucinations. Patient admits to smoking cigarettes daily and using alcohol and marijuana occasionally. PAST PSYCHIATRIC HISTORY: He has a diagnosis of bipolar disorder. Patient was previously admitted to [facility] in early January 2020 for similar manic behavior. He was stabilized at the time of using Invega and Depakote and lithium and was transitioned to the long-acting injectable. Patient is following up at [facility] for outpatient psychiatric care. He denies any history of suicide attempts. PMH:denies ALLERGIES: as per EMR CHEMICAL DEPENDENCY HISTORY: as per HPI FAMILY PSYCHIATRIC/SUBSTANCE USE HISTORY: Claims that his aunt and father have some form of mental illness. SOCIAL HISTORY: He states that he was born and raised in [place] and currently lives in [place]. He states that he completed high school and has some college. He denies any legal history. He currently has 2 kids who are estranged to him and currently lives with his in a house. He is currently unemployed. MENTAL STATUS EXAM: General Appearance: Patient appears to be tall, well-built stated age is alert, directable, and impulsive at times. Patient appears to have poor hygiene and grooming. Behavior: Patient is seated without any agitated behavior. Impulsive/irritable at times. Grossly delusional. Speech: Patient's speech is fluent and nonpressured. Rambles. Mood/Affect: Patient reports their mood is "okay", affect is congruent and irritable Suicidality/Homicidality: Patient denies having any homicidal ideation intent or plan. Denies any suicidal ideations intent or plan Perceptions: Patient denies any visual hallucinations and denies any auditory hallucinations Though content/process: Patient is rambling, illogical, grossly delusional, religiously preoccupied. Endorsing paranoia. Memory and concentration: AOX3, grossly intact for the purposes of this session. Can spell "WORLD" backwards Judgment and insight: poor/impulsive. STRENGTHS/WEAKNESSES: strength is that patient is resilient. Weakness is that patient has poor judgment and is impulsive INTELLECT: average IMPRESSIONS: Bipolar disorder, type I, current episode manic cannabis use disorder, mild Nicotine dependence PLAN: -Patient is admitted under voluntary status to MHU for stabilization of psychiatric symptoms and safety. Patient has signed adult voluntary form and medication consent and is placed in patient's chart. Patient is currently on deferral and will need to file demand for hearing due to patient's noncompliance of medications at home. -Medications : Will start patient on Prolixin 4 mg twice a day by mouth for psychosis/mood stabilization. Plan will be to transition patient on 2 Prolixin D prior to discharge. Continue with home dose of Depakote 1500 mg daily at bedtime for mood stabilization. Continue with lithium 300 mg twice a day for mood stabilization. Vistaril by mouth when necessary for anxiety. -Ativan and Prolixin IM PRN for agitation/aggression -Patient was counselled on substance abuse and desired to cut back on use -Patient was informed of the risks, benefits and side effects of the medication and patient verbally consented to taking the medications. Patient signed med consent form and was placed in chart. -Internal Medicine consult to perform medical evaluation and physical. -NRT - nicotine patch -Continue with security one to one due to patient's history of severe violence and agitation on the unit and also patient's irritability and impulsiveness at this current time. -SW on board for discharge planning. Encourage patient to participate in groups to work on coping skills. We'll be filing for demand for hearing due to patient's noncompliance of medications. 02/17/20 12:43
[2020-02-17 15:59] LABS: Hemoglobin A1C 5.2 % (4.0-6.0)
[2020-02-17] MEDS: DIVALPROEX ER 500 MG TAB.ER.24H PO SCH (19:59)
[2020-02-17] MEDS: hydrOXYzine pamoate 25 MG CAP PO PRN (23:12)
[2020-02-18] MEDS: LORazepam 2 MG/ML INJ IM PRN (02:20)
[2020-02-18] MEDS: NICOTINE 21MG/24HR PATCH TRANSDERM SCH (09:00)
[2020-02-18] MEDS: LITHIUM CARBONATE 300 MG CAP PO SCH ×2 (09:01→20:38)
--- NOTE | 2020-02-18 10:29 | P.PN ---
Progress Note - Text Progress Note Date: 02/18/20 Interval History: Patient was seen sitting in on group today and was directable and agreeable to speak with sports writer in the office. And continues to have a one-to-one security with him on the unit. Patient appeared to be less delusional today however continues to state that he "fears my " and states that he does not want to return home. When asked why he states that "I can't change her" and then began speaking about politics and that she is a "green party". Patient was calm and cooperative during more of the interview today and was less religiously preoccupied however towards the end of the interview patient became irritable and was demanding discharge. He claims that "I came here by myself to get treatment so he should let me go". He states that he has been taking his medications as prescribed. He claims that his mood has been improving and denies any anxiety today. He is agreeable to continue on taking his medications and receive the Prolixin long-acting injection prior to discharge. He states that he was able to sleep soundly last night and has a fair appetite. At this time patient denies any suicidal or homical ideations, intent or plan. Patient denies any auditory, visual hallucinations. Patient denies any side effects from the medications and has been compliant with meds. Mental Status Exam: General Appearance: Patient appears to be tall, well-built stated age is alert, directable, and impulsive at times, improving mildly. Patient appears to have poor hygiene and grooming. Behavior: Patient is seated without any agitated behavior. Impulsive/irritable at times. Grossly delusional, improving mildly Speech: Patient's speech is fluent and nonpressured. Mood/Affect: Patient reports their mood is "fine", affect is congruent and irritable at times Suicidality/Homicidality: Patient denies having any homicidal ideation intent or plan. Denies any suicidal ideations intent or plan Perceptions: Patient denies any visual hallucinations and denies any auditory hallucinations Though content/process: Patient is rambling, illogical, grossly delusional, less religiously preoccupied today. Endorsing paranoia towards his . Memory and concentration: AOX3, grossly intact for the purposes of this session Judgment and insight: poor/impulsive, improving mildly Assessment Bipolar disorder, type I, current episode manic cannabis use disorder, mild Nicotine dependence Plan: -Patient continues to meet criteria for inpatient psychiatric admission for sy mptom stabilization and safety. Patient has signed adult voluntary form and was placed in patient's chart. Filed demand for hearing and court date set for 02/24/2020 at 11 AM. -Medications: Increased Prolixin by mouth to 5.5 mg twice a day for mood stabilization/psychosis. plan will be and will be to likely give long-acting injection tomorrow. Continue with lithium 300 mg twice a day for mood stab ilization. Continue with Depakote 1500 mg daily at bedtime for mood stabilization. Vistaril when necessary for anxiety. -When necessary Ativan and Prolixin IM for agitation/aggression. -NRT - nicotine patch -Continue with security one to one due to patient's history of severe violence and agitation on the unit and also patient's irritability and impulsiveness at this current time -SW on board for discharge planning. Encouraged the patient to participate in milieu. Will await demand for hearing court date next Saturday.
[2020-02-18] MEDS: DIVALPROEX ER 500 MG TAB.ER.24H PO SCH (20:38)
[2020-02-19] MEDS: NICOTINE 21MG/24HR PATCH TRANSDERM SCH (06:43)
[2020-02-19] MEDS: LITHIUM CARBONATE 300 MG CAP PO SCH (08:29)
[2020-02-19] MEDS ORDERED: fluPHENAZine DECANOATE 25 MG/ML 5ML MDV IM ONE (10:00)
[2020-02-19] MEDS ORDERED: diphenhydrAMINE 50 MG CAP PO PRN (11:57)
--- NOTE | 2020-02-19 12:08 | P.PN ---
Progress Note - Text Progress Note Date: 02/19/20 Interval History: Patient was seen today wandering the hallways with his security 1:1 by his side today and was directable and agreeable to speak with newspaper writer in the office. Patient appeared to be less delusional today and claims that he has been speaking with his over the phone and claims that "we are working things out and I trust her more". He was less politically and religiously preoccupied today. Patient was calmer and cooperative during more of the interview today. He claims that he wants to be discharged today so he can spend halloween with his kids. He denies any agression or irritability today. he states that he would be willing to sign the waive and stip today with the machinist 2nd shift. He states that he has been taking his medications as prescribed. He claims that he was able to sleep well last night. He claims that his mood has been improving and denies any anxiety today. Patient took her Prolixin D this morning and tolerated it well. At this time patient denies any suicidal or homical ideations, intent or plan. Patient denies any auditory, visual hallucinations. Patient denies any side effects from the medications and has been compliant with meds. Patient was seen later on in the hallways and approached newspaper writer two times claiming that "I know what you guys are up to and Im not signing anything without my machinist 2nd shift". He went on to state that he fired his machinist 2nd shift and began to make more delusional comments and claims that the people on the unit are conspiring against him. Patient appeared to be getting more irritable and demanding discharge. Mental Status Exam: General Appearance: Patient appears to be tall, well-built stated age is alert, irritable and impulsive at times, improving mildly. Patient appears to have improving hygiene and grooming. Behavior: Patient is seated without any agitated behavior. Impulsive/irritable at times. Grossly delusional, improving mildly. paranoia Speech: Patient's speech is fluent and nonpressured. Mood/Affect: Patient reports their mood is "fine", affect is congruent and irritable at times Suicidality/Homicidality: Patient denies having any homicidal ideation intent or plan. Denies any suicidal ideations intent or plan Perceptions: Patient denies any visual hallucinations and denies any auditory hallucinations Though content/process: Patient is rambling, illogical, grossly delusional, less religiously preoccupied today. Endorsing paranoia towards staff on the unit. Memory and concentration: AOX3, grossly intact for the purposes of this session Judgment and insight: poor/impulsive, improving mildly Assessment Bipolar disorder, type I, current episode manic cannabis use disorder, mild Nicotine dependence Plan: -Patient continues to meet criteria for inpatient psychiatric admission for symptom stabilization and safety. Patient has signed adult voluntary form and was placed in patient's chart. Filed demand for hearing and court date set for 02/24/2020 at 11 AM. -Medications: Increased Prolixin by mouth to 6.5 mg twice a day for mood stabilization/psychosis with plan to titrate down to 5 mg bid on saturday. Patient recieved a dose of Prolixin D 37.5mg IM [place] today. will re-evaluate on saturday if patient will need an extra 12.5mg dose prior to discharge. Continue with lithium 300 mg twice a day for mood stabilization. Continue with Depakote 1500 mg daily at bedtime for mood stabilization. check [place] and depakte level on saturday. Vistaril when necessary for anxiety. -When necessary Benadryl, Ativan and Prolixin IM for agitation/aggression. -NRT - nicotine patch -Continue with security one to one due to patient's history of severe violence and agitation on the unit and also patient's irritability and impulsiveness at this current time -SW on board for discharge planning. Encouraged the patient to participate in milieu. Will await demand for hearing court date next Saturday. Patient re fused to sign waive and stip today and became more irritable and paranoid, he remains psychiatrically unstable and will require further treatment on the unit. Will see how he does over the weekend and will hope for discharge early next week.
[2020-02-19] MEDS: diphenhydrAMINE 50 MG/ML 1 ML VIAL IM PRN (15:00)
[2020-02-19] MEDS: LORazepam 2 MG/ML INJ IM PRN (15:01)
[2020-02-20] MEDS: DIVALPROEX ER 500 MG TAB.ER.24H PO SCH ×2 (01:27→20:26)
[2020-02-20] MEDS: LITHIUM CARBONATE 300 MG CAP PO SCH ×3 (01:27→20:26)
[2020-02-20] MEDS: ACETAMINOPHEN TAB 325 MG TAB PO PRN (03:05)
[2020-02-20] MEDS: NICOTINE 21MG/24HR PATCH TRANSDERM SCH (08:47)
--- NOTE | 2020-02-20 11:04 | P.PN ---
Subjective Progress Note Date: 02/20/20 BIPOLAR I MANIC SUBJECTIVE:The patient began a long speech about how he got in here but was redirectable and said, "I'll be patient" He said that he loves the effects of the Prolixin and is sleeping well and feeling calm. He denies any aggression or suicidal ideas. He says that he was taking his medications before admission and they just did not work as well as his current meds. OBJECTIVE: Vital signs:temp 98.1,pulse97, resp 16, blood pressure 135/63 Labs:Nothing new his lithium level was subtherapeutic as a sole agent of control but enough to be a moderate augmenter Staff report:About 3:30 PM yesterday staff was speaking with the patient at the desk. He stated that he was going to [facility] the hospital and started to talk about the stipulation to an order and that he wanted to go in front of [employer]. I informed him that was his choice and that court was scheduled for Saturday at 11:00. He then started to make comments towards a new patient that had just come onto the unit about how the patient was going to assault him. Christopher then made threatening movements towards the other patient. He also stated that if we were going to call a Mr. Baker that we had better get the whole police fo rce and that we needed to put a barrier up at the front desk monitor. He then walked back and forth in the hallway with his security 1:1. Medication was drawn up and the patient then went into his room and barricaded himself in using the bathroom door to block the other one. After about 5-10 minutes of being barricaded in his room, he let staff in and took the injections. Medications:Prolixin, he received the shot yesterday he has benadryl prn for insomnia, Depakote 1500 at hs for mood control, [place] 300 bid for mood control and ativan and vistaril prn for anxiety Mental status:He was slightly pressured and wanted to be seen next so he could go over issues of discharge and court etc. He was redirectable with good eye contact, a big positive smile and was reasonably dressed with good ADL's , gait and strength were normal. He was seen along with a chief lending officer in my office ASSESSMENT:He is on good medicine but seems a little manic still but is very positive about the prolixin which is good PLAN:no change Objective - Vital Signs Vital signs: Vital Signs Temp 98.1 F 02/20/20 07:00 Pulse 97 02/20/20 07:00 Resp 16 02/20/20 07:00 BP 135/63 02/20/20 07:00 Pulse Ox 98 02/19/20 05:23 - Labs CBC & Chem 7: 02/17/20 07:24 02/17/20 07:24
[2020-02-21] MEDS: LITHIUM CARBONATE 300 MG CAP PO SCH ×2 (07:50→21:03)
[2020-02-21] MEDS: NICOTINE 21MG/24HR PATCH TRANSDERM SCH (07:50)
--- NOTE | 2020-02-21 11:46 | P.PN ---
Subjective Progress Note Date: 02/21/20 Principal diagnosis: Bipolar I Manic SUBJECTIVE:I am doing great, I just came in here to get a break from my , I just love the medications OBJECTIVE: Vital signs: temp 97.6 resp 16 heart rate 83 blood pressure 139/88 Labs:nothing new STAFF REPORT: MENTAL STATUS: Appearance: basic ADL'S adequate Gait and station:normal Speech:normal in rate and volume Eye contact: good Behavior: cooperative Affect:overly big smile No evidence or acknowlegment of voices or delusions Orientation: good to person place and time MEDICATIONS: Depakote 1500 Qhs Prolixin 5 bid [place] 300 bid ASSESSMENT:patient is cooperative and still too overly positive He is on good anti manic meds and just needs time for them to work PLAN:no change in meds Objective - Vital Signs Vital signs: Vital Signs Temp 97.6 F 02/21/20 04:45 Pulse 83 02/21/20 04:45 Resp 16 02/21/20 04:45 BP 139/88 02/21/20 04:45 Pulse Ox 94 L 02/21/20 04:45 Intake & Output 02/20/20 02/21/20 02/21/20 19:59 06:59 18:59 Weight 118.3 kg - Labs CBC & Chem 7: 02/17/20 07:24 02/17/20 07:24
[2020-02-21] MEDS: DIVALPROEX ER 500 MG TAB.ER.24H PO SCH (21:04)
[2020-02-21] MEDS: hydrOXYzine pamoate 25 MG CAP PO PRN (22:13)
[2020-02-22] MEDS: LITHIUM CARBONATE 300 MG CAP PO SCH ×2 (07:54→20:40)
[2020-02-22] MEDS: NICOTINE 21MG/24HR PATCH TRANSDERM SCH ×2 (07:56→11:04)
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
[2020-02-22 17:04] VITALS: TEMP 98
[2020-02-22] MEDS: hydrOXYzine pamoate 25 MG CAP PO PRN (18:58)
[2020-02-22] MEDS ORDERED: fluPHENAZine DECANOATE 25 MG/ML 5ML MDV IM ONE (20:00)
[2020-02-22] MEDS: DIVALPROEX ER 500 MG TAB.ER.24H PO SCH (20:40)
[2020-02-22] MEDS: diphenhydrAMINE 50 MG/ML 1 ML VIAL IM PRN (20:45)
[2020-02-23] MEDS: ACETAMINOPHEN TAB 325 MG TAB PO PRN (03:50)
[2020-02-23 04:27] VITALS: BP 136/82; PULSE 103; RESP 18
[2020-02-23] MEDS: NICOTINE 21MG/24HR PATCH TRANSDERM SCH (08:31)
[2020-02-23 09:17] LABS: Lithium 0.2 mmol/L
[2020-02-23] MEDS: LITHIUM CARBONATE 300 MG CAP PO SCH (09:21)
[2020-02-23 09:26] LABS: Valproic Acid (Depakene) 62.3 ug/mL
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
[2020-02-23] MEDS: hydrOXYzine pamoate 25 MG CAP PO PRN (10:59)
== END 2020-02-23 11:37 | disposition home or self-care (01) | DRG 885 ==
LOC: EC 10:59 → 3MHU 16:03
PROVIDERS: ADMIT Psychiatry & Neurology Psychiatry; ATTEND Psychiatry & Neurology Psychiatry
DX: F31.2 Bipolar disorder, current episode manic severe with psychotic features (principal); F17.210 Nicotine dependence, cigarettes, uncomplicated; F12.10 Cannabis abuse, uncomplicated; G47.00 Insomnia, unspecified; Z56.0 Unemployment, unspecified; Z63.8 Other specified problems related to primary support group; Z79.899 Other long term (current) drug therapy; Z91.14 Patient's other noncompliance with medication regimen; Z81.8 Family history of other mental and behavioral disorders
CPT/HCPCS: 80053; 80061; 80164; 80178; 80306; 82075; 83036; 84443; 85025; 99285

== ENCOUNTER 2021-04-30 15:41 | Emergency (ER) | payer OTHER ==
[2021-04-30 16:42] VITALS: TEMP 98.2
--- NOTE | 2021-04-30 17:18 | XR ---
EXAMINATION TYPE: XR ribs RT w pa chest xray DATE OF EXAM: 04/30/2021 COMPARISON: NONE HISTORY: Pain TECHNIQUE: 5 views FINDINGS: Heart and mediastinum are normal. Lungs are clear of infiltrate. There is no pleural effusi on or pneumothorax. There is nondisplaced fracture anterior right 7 8 and 9 ribs. IMPRESSION: Acute anterior multiple right rib fractures. No pneumothorax. Normal heart.
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
[2021-04-30 18:24] VITALS: BP 128/88; PULSE 86; RESP 18
== END 2021-04-30 18:24 | disposition home or self-care (01) ==
LOC: EC 15:41
DX: S22.41XA Multiple fractures of ribs, right side, initial encounter for closed fracture (principal); F17.200 Nicotine dependence, unspecified, uncomplicated; V89.2XXA Person injured in unspecified motor-vehicle accident, traffic, initial encounter
CPT/HCPCS: 99283

== ENCOUNTER 2021-05-05 10:33 | Emergency (ER) | payer OTHER ==
[2021-05-05 10:39] VITALS: RESP 18; TEMP 98
--- NOTE | 2021-05-05 11:52 | ED ---
General Adult HPI - General Chief complaint: Psychiatric Symptoms Stated complaint: Petition Time Seen by Provider: 05/05/21 10:35 Source: patient, RN notes reviewed, old records reviewed Mode of arrival: ambulatory - History of Present Illness Initial comments: This a 36-year-old male who [facility]. Medications states that the patient was running properly in [facility] and was violent towards staff patient denies this and states that the [facility] worker at the [facility] has something against him and did not want him to be released. Patient was post to be released today and has a court time at 1 PM. Patient denies that he ruined any items in the [facility]. Patient was upset last night when he was arrested because he didn't believe he needed to be there. Patient according to the police office with him today has been cooperative calm and not saying anything out of the ordinary. Patient denies suicidal or homicidal ideations. Patient feels as though he shouldn't be here and that he should be released to go to was court time at 1 PM - Related Data Previous Rx's Medication Instructions Recorded Acetaminophen Tab [Tylenol] 650 mg PO Q4HR PRN tab 02/23/20 Divalproex ER [Depakote ER] 1,500 mg PO HS 30 Days tab.er.24h 02/23/20 [place] Carbonate 300 mg PO BID 30 Days cap 02/23/20 Nicotine 21Mg/24Hr Patch [Habitrol] 1 patch TRANSDERM DAILY 14 Days 02/23/20 patch fluPHENAZine [Prolixin 1MG] 3 mg PO BID 4 Days tablet 02/23/20 fluPHENAZine decanoate [Prolixin 50 mg IM [id number] #1 vial 02/23/20 Decanoate] hydrOXYzine pamoate [Vistaril] 50 mg PO HS PRN 30 Days cap 02/23/20 Allergies Allergy/AdvReac Type Severity Reaction Status Date / Time No Known Allergies Allergy Verified 05/05/21 10:34 Review of Systems ROS Statement: Those systems with pertinent positive or pertinent negative responses have been documented in the HPI. ROS Other: All systems not noted in ROS Statement are negative. Past Medical History Past Medical History: No Reported History History of Any Multi-Drug Resistant Organisms: None Reported Past Surgical History: No Surgical Hx Reported Past Psychological History: Bipolar Smoking Status: Current every day smoker Past Alcohol Use History: None Reported Past Drug Use History: None Reported General Exam - General Exam Comments Initial Comments: GENERAL: Patient is well-developed and well-nourished. Patient is nontoxic and well- hydrated and is in no acute distress. ENT: Neck is soft and supple. No significant lymphadenopathy is noted. Oropharynx is clear. Moist mucous membranes. Neck has full range of motion without eliciting any pain. EYES: The sclera were anicteric and conjunctiva were pink and moist. Extraocular movements were intact and pupils were equal round and reactive to light. Eyelids were unremarkable. PULMONARY: Unlabored respirations. Good breath sounds bilaterally. No audible rales rhonchi or wheezing was noted. CARDIOVASCULAR: There is a regular rate and rhythm without any murmurs gallops or rubs. ABDOMEN: Soft and nontender with normal bowel sounds. SKIN: Skin is clear with no lesions or rashes and otherwise unremarkable. NEUROLOGIC: Patient is alert and oriented x3. Cranial nerves II through XII are grossly intact. Motor and sensory are also intact. Normal speech, volume and content. Symmetrical smile. MUSCULOSKELETAL: Normal extremities with adequate strength and full range of motion. LYMPHATICS: No significant lymphadenopathy is noted PSYCHIATRIC: Normal psychiatric evaluation. Patient denies being violent or patient denies suicidal or homicidal ideations Course Vital Signs 05/05/21 10:34 Temperature 98 F Pulse Rate 75 Respiratory 18 Rate Blood Pressure 138/85 O2 Sat by Pulse 99 Oximetry Medical Decision Making - Lab Data Lab Results 05/05/21 Range/Units 12:06 Urine Opiates Screen Not Detected (NotDetected) Ur Oxycodone Screen Not Detected (NotDetected) Urine Methadone Screen Not Detected (NotDetected) Ur Propoxyphene Screen Not Detected (NotDetected) Ur Barbiturates Screen Not Detected (NotDetected) U Tricyclic Antidepress Not Detected (NotDetected) Ur Phencyclidine Scrn Not Detected (NotDetected) Ur Amphetamines Screen Not Detected (NotDetected) U Methamphetamines Scrn Not Detected (NotDetected) U Benzodiazepines Scrn Not Detected (NotDetected) Urine Cocaine Screen Not Detected (NotDetected) U Marijuana (THC) Screen Not Detected (NotDetected) Disposition Clinical Impression: Acute stress reaction Disposition: HOME SELF-CARE Condition: Good Instructions (If sedation given, give patient instructions): Stress (ED) Is patient prescribed a controlled substance at d/c from ED?: No Referrals: Rip Lanier MD [Primary Care Provider] - 1-2 days Time of Disposition: 13:09
[2021-05-05 12:36] LABS: Amphetamine Screen,Urine Not Detected (NotDetected); Barbiturate Screen,Urine Not Detected (NotDetected); Benzodiazepines Screen,Urine Not Detected (NotDetected); Cocaine Screen,Urine Not Detected (NotDetected); Methadone Screen, Urine Not Detected (NotDetected); Opiate Screen,Urine Not Detected (NotDetected); Oxycodone Screen, Urine Not Detected (NotDetected); Phencyclidine Screen,Urine Not Detected (NotDetected); Tricyclic Antidepressant,Urine Not Detected (NotDetected); Urn Cannabinoid Scrn Not Detected (NotDetected)
[2021-05-05 13:13] VITALS: BP 128/87; PULSE 78
--- NOTE | 2021-05-05 13:30 | P.PN ---
Progress Note - Text Progress Note Date: 05/05/21 Interval history: Patient was seen today by technical writer and editor for psychiatric brief assessment in the . Byron kuo has a history of bipolar disorder and a history of aggression and admission to the [facility] last admitted in 02/2020. He was seen today coming from [facility] as he was awaiting arraignment today. He presented on petition. He was calm and appropriate with technical writer and editor and was directable during conversation. He states that his [facility] case supervisor "has it out for me" and states that he does not get along with her. He states that his mood is "ok" and is denying any anxiety. He is not endorsing delusions, thought insertion or thought blocking. He was alert and oriented X3. He is denying any SI or HI today and denies any AH or VH. He claims that he is taking his meds including seroquel at nighttime and depakote 250 mg tid. MSE: He is calm, appropirate, dressed in orange jumpsuit, handcuffed to the bed. He is tall, overweight. He claims his mood is "fine" affect is congruent. He is not agitate. He was logical, goal oriented. not endorsing delusions or paranoia. AOx3. chronically poor judgment/insight. Assessment: Schizoaffective disorder, bipolar type legal problems. Plan: Patient currently follows up with [facility] and will continue to do so. He can continue on his current med regimen. He is not meeting criteria for inpatient psychiatric hospitalization at this time. Informed EPS nurse of azucena and DEBBIE pompa.
== END 2021-05-05 13:11 | disposition home or self-care (01) ==
LOC: EC 10:33
DX: F43.0 Acute stress reaction (principal); F25.0 Schizoaffective disorder, bipolar type; F17.200 Nicotine dependence, unspecified, uncomplicated
CPT/HCPCS: 80306; 82075; 99284